=== PATIENT | female | born 1935 | race Caucasian/White ===

== ENCOUNTER 2017-01-28 07:52 | Day surgery (SDC) | payer MEDICARE, BC ==
[2017-01-28] MEDS ORDERED: Dextrose 5%-Lactated Ringers 1,000 ML IV SCH (08:30)
[2017-01-28] MEDS ORDERED: Bupivacaine 0.5% 50 ML MDV ONE (09:06)
[2017-01-28] MEDS ORDERED: fentaNYL 100 MCG/2 ML SDV ONE (09:23)
[2017-01-28] MEDS ORDERED: Propofol 200 MG/20 ML SDV ONE (09:23)
[2017-01-28] MEDS ORDERED: Scopolamine 1.5 MG Transdermal Patch ONE (10:03)
[2017-01-28] MEDS ORDERED: Bacitracin Oint 1 GM U/D Packet ONE (10:20)
[2017-01-28] MEDS: ceFAZolin 1 GM in Premix Bag 1 BAG IV ONE ×2 (11:02→11:18)
[2017-01-28 11:36] VITALS: BP 144/68
--- NOTE | 2017-02-05 14:13 | OR ---
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 OPERATIVE PROCEDURE: Excision of probable basal cell carcinoma on the right side of nose with layered closure ([id number]). ANESTHESIA: Local plus IV sedation. INDICATION FOR PROCEDURE: This is an 81-year-old presenting with a nodular lesion in the lateral aspect of her nose on the right side, this more or less along the edge of the naris. It was decided to proceed with excision of this with a primary closure. Potential risks including bleeding, infection, possible local recurrence, problems with some cosmetic deformity related to the excision were all reviewed, and the patient wishes to proceed. PROCEDURE IN DETAIL: The patient was taken to the operating room and placed in the supine position. After IV sedation was administered, the nose and surrounding areas were prepped and draped. The area around the lesion was then anesthetized with 1% lidocaine and a transversely oriented elliptical incision was made around the lesion extended somewhat into the underlying cartilage and it contained a small amount of normal-appearing skin adjacent to it. The deeper soft tissues were then approximated with some 5-0 Vicryl stitch and the skin with 6-0 Prolene stitch and some bacitracin was applied and the procedure concluded. The patient taken to the recovery room in satisfactory condition. The lesion itself measured 1.1 cm and the incision length 1.6 cm. Ahmet Velazquez MD /[id number]
== END 2017-01-28 11:55 | disposition home or self-care (01) ==
LOC: JP.SDS 07:52
PROVIDERS: ATTEND Surgery
DX: C44.311 Basal cell carcinoma of skin of nose (principal); I10 Essential (primary) hypertension; E78.00 Pure hypercholesterolemia, unspecified; Z79.899 Other long term (current) drug therapy; Z98.890 Other specified postprocedural states; Z88.8 Allergy status to other drugs, medicaments and biological substances; Z91.040 Latex allergy status
CPT/HCPCS: 11642; 12051; 88305; J0690; J2704; J3010; J7042; A9270-GY

== ENCOUNTER 2019-11-06 15:53 | Inpatient (IN) | payer MEDICARE ==
[2019-11-06] MEDS ORDERED: Acetaminophen 500 MG Tab PO ONE (16:04)
--- NOTE | 2019-11-06 16:14 | EDM.PDOC ---
ED HPI GENERAL MEDICAL PROBLEM - General Chief Complaint: Fever Stated Complaint: [facility] Time Seen by Provider: 11/06/19 16:09 Source of Information: Reports: Patient, EMS, Family, Old Records History Limitations: Reports: No Limitations - History of Present Illness INITIAL COMMENTS - FREE TEXT/NARRATIVE: 84 yo female here for fever that began this afternoon. Her lower legs have been increasingly red over the past couple of days. No urinary or respiratory sx's. No vomiting or diarrhea. No abdominal pain. No self tx. 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) (none) - Related Data Allergies Allergy/AdvReac Type Severity Reaction Status Date / Time latex Allergy Cannot Verified 01/28/17 08:14 Remember nifedipine [From Procardia] Allergy Cannot Verified 01/28/17 08:14 Remember terazosin Allergy Cannot Verified 01/28/17 08:14 Remember verapamil Allergy Cannot Verified 01/28/17 08:14 Remember Home Meds: Home Meds Acetaminophen 500 mg PO Q4HR PRN 01/24/17 [History] Aspirin 324 mg PO DAILY 01/24/17 [History] Atenolol [Tenormin] 50 mg PO BID 01/24/17 [History] Enalapril [Vasotec] 10 mg PO BID 01/24/17 [History] Felodipine [Felodipine ER] 10 mg PO DAILY 01/24/17 [History] Furosemide [Lasix] 20 mg PO DAILY 01/24/17 [History] Glucosamine Sulfate 1,000 mg PO BID 01/24/17 [History] Multivitamin with Minerals [Multiple Vitamin] 1 tab PO DAILY 01/24/17 [History] Potassium Chloride [Klor-Con M10] 10 meq PO BID 01/24/17 [History] Pravastatin [Pravachol] 40 mg PO DAILY 01/24/17 [History] Past Medical History HEENT History: Reports: Allergic Rhinitis, Cataract, Impaired Vision Cardiovascular History: Reports: High Cholesterol, Hypertension Respiratory History: Reports: None Gastrointestinal History: Reports: 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: Musculoskeletal History: Reports: None Neurological History: Reports: None Hematologic History: Reports: Blood Transfusion(s) - Infectious Disease History Infectious Disease History: Reports: Chicken Pox, Measles - Past Surgical History HEENT Surgical History: Reports: Cataract Surgery Neurological Surgical History: Reports: Lumbar Spine Musculoskeletal Surgical History: Reports: Hip Replacement Social & Family History - Caffeine Use Caffeine Use: Reports: Coffee, Tea ED ROS GENERAL - Review of Systems Review Of Systems: See Below Constitutional: Reports: No Symptoms HEENT: Reports: No Symptoms Respiratory: Reports: No Symptoms Cardiovascular: Reports: No Symptoms GI/Abdominal: Reports: No Symptoms : Reports: No Symptoms Musculoskeletal: Reports: No Symptoms Skin: Reports: Erythema (both legs below the knees) Neurological: Reports: No Symptoms ED EXAM, SEPSIS - Physical Exam Exam: See Below Exam Limited By: No Limitations General Appearance: Alert, WD/WN, No Apparent Distress Eye Exam: Bilateral Eye: Normal Inspection Ears: Normal External Exam, Normal Canal, Hearing Grossly Normal, Normal TMs Nose: Normal Inspection, No Blood Throat/Mouth: Normal Inspection, Normal Lips, Normal Oropharynx, Normal Voice, No Airway Compromise Head: Atraumatic, Normocephalic Neck: Normal Inspection Respiratory/Chest: No Respiratory Distress, Lungs Clear, Normal Breath Sounds, No Accessory Muscle Use Cardiovascular: Regular Rate, Rhythm GI/Abdominal Exam: Normal Bowel Sounds, Soft, Non-Tender, No Distention Back: Normal Inspection. No: CVA Tenderness (R), CVA Tenderness (L) Extremities: Normal Inspection, Normal Range of Motion, Non-Tender, No Pedal Edema Neurological: Alert, Oriented, CN II-XII Intact, Normal Cognition, No Motor/ Sensory Deficits Psychiatric: Normal Affect, Normal Mood Skin: Warm, Dry, Intact, No Rash, Erythema (of both legs below the knees.) Course - Vital Signs Text/Narrative:: Dr. Downing called @ 1712h Last Recorded V/S: Last Vital Signs Temp 39.6 C H 11/06/19 16:21 Pulse 94 11/06/19 16:21 Resp 18 11/06/19 16:21 BP 150/68 H 11/06/19 16:21 Pulse Ox 99 11/06/19 16:21 - Orders/Labs/Meds Orders: Active Orders 24 hr Category Date Time Status CULTURE BLOOD [BC] Stat Lab 11/06/19 16:18 Received LACTIC ACID [CHEM] Stat Lab 11/06/19 20:30 Ordered UA W/MICROSCOPIC [URIN] Stat Lab 11/06/19 15:59 Ordered Lactated Ringers [Ringers, Lactated] 1,000 ml Med 11/06/19 17:09 Ordered IV BOLUS Sodium Chloride 0.9% [Saline Flush] Med 11/06/19 16:55 Active 10 ml FLUSH ASDIRECTED PRN Saline Lock Insert [OM.PC] Routine Oth 11/06/19 16:55 Ordered Medication Orders Lactated Ringer's (Ringers, Lactated) 1,000 mls @ 1,000 mls/hr IV BOLUS ONE Stop: 11/06/19 18:08 Sodium Chloride (Saline Flush) 10 ml FLUSH ASDIRECTED PRN PRN Reason: Keep Vein Open Labs: Laboratory Tests 11/06/19 11/06/19 11/06/19 Range/Units 16:18 16:18 16:18 WBC 14.6 H (4.5-11.0) K/uL RBC 4.91 (3.30-5.50) M/uL Hgb 14.3 (12.0-15.0) g/dL Hct 45.3 (36.0-48.0) % MCV 92 (80-98) fL MCH 29 (27-31) pg MCHC 32 (32-36) % Plt Count 287 (150-400) K/uL Sodium 140 (140-148) mmol/L Potassium 3.7 (3.6-5.2) mmol/L Chloride 101 (100-108) mmol/L Carbon Dioxide 27 (21-32) mmol/L Anion Gap 11.7 (5.0-14.0) mmol/L BUN 19 H (7-18) mg/dL Creatinine 0.6 (0.6-1.0) mg/dL Est Cr Clr Drug Dosing TNP Estimated GFR (MDRD) > 60 (>60) Glucose 99 (74-106) mg/dL Lactic Acid 2.8 H (0.4-2.0) mmol/L Calcium 9.1 (8.5-10.1) mg/dL Meds: Medications Generic Name Dose Route Start Last Admin Trade Name Freq PRN Reason Stop Dose Admin Lactated Ringer's 1,000 mls @ 1,000 mls/hr 11/06/19 17:09 Ringers, Lactated IV 11/06/19 18:08 BOLUS ONE Sodium Chloride 10 ml 11/06/19 16:55 Saline Flush FLUSH ASDIRECTED PRN Keep Vein Open Discontinued Medications Generic Name Dose Route Start Last Admin Trade Name Ej PRN Reason Stop Dose Admin Acetaminophen 1,000 mg 11/06/19 16:04 11/06/19 16:37 Tylenol Extra Strength PO 11/06/19 16:05 1,000 mg ONETIME ONE Administration Departure - Departure Time of Disposition: 17:35 Disposition: Admitted As Inpatient 65 Condition: Fair Clinical Impression: Bilateral lower leg cellulitis - Discharge Information *PRESCRIPTION DRUG MONITORING PROGRAM REVIEWED*: No *COPY OF PRESCRIPTION DRUG MONITORING REPORT IN PATIENT JULIO CESAR: No Referrals: Jayce Romero MD [Primary Care Provider] - Forms: ED Department Discharge Sepsis Event Note - Focused Exam Vital Signs: Vital Signs Temp Pulse Resp BP Pulse Ox 11/06/19 16:21 39.6 C H 94 18 150/68 H 99 Date Exam was Performed: 11/06/19 Time Exam was Performed: 17:12 - My Orders Last 24 Hours: My Active Orders 11/06/19 15:59 UA W/MICROSCOPIC [URIN] Stat 11/06/19 16:18 CULTURE BLOOD [BC] Stat 11/06/19 16:55 Sodium Chloride 0.9% [Saline Flush] 10 ml FLUSH ASDIRECTED PRN Saline Lock Insert [OM.PC] Routine 11/06/19 17:09 Lactated Ringers [Ringers, Lactated] 1,000 ml IV BOLUS 11/06/19 20:30 LACTIC ACID [CHEM] Stat - Assessment/Plan Last 24 Hours: My Active Orders 11/06/19 15:59 UA W/MICROSCOPIC [URIN] Stat 11/06/19 16:18 CULTURE BLOOD [BC] Stat 11/06/19 16:55 Sodium Chloride 0.9% [Saline Flush] 10 ml FLUSH ASDIRECTED PRN Saline Lock Insert [OM.PC] Routine 11/06/19 17:09 Lactated Ringers [Ringers, Lactated] 1,000 ml IV BOLUS 11/06/19 20:30 LACTIC ACID [CHEM] Stat
[2019-11-06] MEDS ORDERED: Sodium Chloride 0.9% 10 ML Syringe FLUSH PRN (16:55)
[2019-11-06] MEDS ORDERED: Lactated Ringers 1,000 ML IV ONE (17:09)
[2019-11-06] MEDS ORDERED: Sodium Chloride 0.9% 500 ML IV SCH (17:45)
--- NOTE | 2019-11-06 17:55 | PCM.HP.2 ---
H&P History of Present Illness - General Date of Service: 11/06/19 Admit Problem/Dx: Admission Diagnosis/Problem Admission Diagnosis/Problem Cellulitis of leg Source of Information: Patient, Provider History Limitations: Reports: No Limitations - History of Present Illness Initial Comments - Free Text/Narative: CC: My temp was high HPI: Luciana presents to the emergency room today with a fever greater than 103 degrees. She reports off-and-on difficulties with some redness of her lower extremities for the past several weeks. She does not think the redness is dramatically different other than on the left leg which may be slightly more red. Swelling is about usual for her over the past few weeks. Over the past several days she has had some subjective temperatures and today a temperature greater than 103 was measured at her assisted living facility. She feels a little weak and has lost her appetite. She has not had a cough or shortness of breath. No abdominal pain, nausea or diarrhea. No change in bladder habits such as dysuria or increased frequency. She has had some mild achy pain in the lower legs that does get better with Tylenol. She has never had an infection in either of her legs in the past. No recent antibiotics. No sick contacts. She does report a mild sore throat and rhinorrhea. Work-up in the emergency room was suggestive of a left leg cellulitis with mild sepsis. She has received 1 L of fluids. She will be receiving 500 more milliliters as well as antibiotics and then will be admitted for further management. - Related Data Allergies/Adverse Reactions: Allergies Allergy/AdvReac Type Severity Reaction Status Date / Time latex Allergy Cannot Verified 01/28/17 08:14 Remember nifedipine [From Procardia] Allergy Cannot Verified 01/28/17 08:14 Remember terazosin Allergy Cannot Verified 01/28/17 08:14 Remember verapamil Allergy Cannot Verified 01/28/17 08:14 Remember Home Medications: Home Meds Acetaminophen 500 mg PO Q4HR PRN 01/24/17 [History] Aspirin 324 mg PO DAILY 01/24/17 [History] Atenolol [Tenormin] 50 mg PO BID 01/24/17 [History] Enalapril [Vasotec] 10 mg PO BID 01/24/17 [History] Felodipine [Felodipine ER] 10 mg PO DAILY 01/24/17 [History] Furosemide [Lasix] 20 mg PO DAILY 01/24/17 [History] Glucosamine Sulfate 1,000 mg PO BID 01/24/17 [History] Multivitamin with Minerals [Multiple Vitamin] 1 tab PO DAILY 01/24/17 [History] Potassium Chloride [Klor-Con M10] 10 meq PO BID 01/24/17 [History] Pravastatin [Pravachol] 40 mg PO DAILY 01/24/17 [History] Past Medical History HEENT History: Reports: Allergic Rhinitis, Cataract, Impaired Vision Cardiovascular History: Reports: High Cholesterol, Hypertension Respiratory History: Reports: None Gastrointestinal History: Reports: 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: Musculoskeletal History: Reports: None Neurological History: Reports: None Hematologic History: Reports: Blood Transfusion(s) - Infectious Disease History Infectious Disease History: Reports: Chicken Pox, Measles - Past Surgical History HEENT Surgical History: Reports: Cataract Surgery Neurological Surgical History: Reports: Lumbar Spine Musculoskeletal Surgical History: Reports: Hip Replacement Social & Family History - Tobacco Use Smoking Status *Q: Never Smoker - Caffeine Use Caffeine Use: Reports: Coffee, Tea - Recreational Drug Use Recreational Drug Use: No H&P Review of Systems - Review of Systems: Review Of Systems: See Below Free Text/Narrative: A complete 12 point review of systems was obtained. Pertinent positives and negatives are noted in the history of present illness. All other systems were reviewed and were negative except as noted. Exam - Exam Exam: See Below - Vital Signs Vital Signs: Last Vital Signs Temp 39.6 C H 11/06/19 16:21 Pulse 94 11/06/19 16:21 Resp 18 11/06/19 16:21 BP 150/68 H 11/06/19 16:21 Pulse Ox 99 11/06/19 16:21 Weight: 56.9 kg - Exam Quality Assessment: No: Supplemental Oxygen General: Alert, Oriented, Cooperative. No: Mild Distress HEENT: Conjunctiva Clear. No: Mucosa Moist & [place] (dry), Scleral Icterus Neck: Supple, Trachea Midline. No: Lymphadenopathy Lungs: Clear to Auscultation, Normal Respiratory Effort Cardiovascular: Regular Rhythm, Tachycardia GI/Abdominal Exam: Normal Bowel Sounds, Soft, Non-Tender, No Distention Back Exam: Normal Inspection, Full Range of Motion Extremities: Pedal Edema (Mild swelling of both legs to below the knee), Increased Warmth (Both legs around the ankle. Left leg very warm to touch on the upper and inner aspect of the lower extremity just distal to the knee) Skin: Warm, Dry, Rash (Erythema of both lower extremities around the ankles with some crusting more so on the left than on the right. Significant erythema of the anteromedial pedraza as well as the upper calf of the left leg), Other (ONE 0.5 x 1 cm vesicle on the left anterior pedraza with some clear drainage) Neuro Extensive - Mental Status: Alert, Oriented x3, Nl Response to Commands Neuro Extensive - Motor, Sensory, Reflexes: Tremor (Mild generalized). No: Dysarthria, Abnormal Motor Psychiatric: Alert, Normal Affect - Patient Data Lab Results Last 24 hrs: Laboratory Results - last 24 hr 11/06/19 11/06/19 11/06/19 Range/Units 16:18 16:18 16:18 WBC 14.6 H (4.5-11.0) K/uL RBC 4.91 (3.30-5.50) M/uL Hgb 14.3 (12.0-15.0) g/dL Hct 45.3 (36.0-48.0) % MCV 92 (80-98) fL MCH 29 (27-31) pg MCHC 32 (32-36) % Plt Count 287 (150-400) K/uL Sodium 140 (140-148) mmol/L Potassium 3.7 (3.6-5.2) mmol/L Chloride 101 (100-108) mmol/L Carbon Dioxide 27 (21-32) mmol/L Anion Gap 11.7 (5.0-14.0) mmol/L BUN 19 H (7-18) mg/dL Creatinine 0.6 (0.6-1.0) mg/dL Est Cr Clr Drug Dosing TNP Estimated GFR (MDRD) > 60 (>60) Glucose 99 (74-106) mg/dL Lactic Acid 2.8 H (0.4-2.0) mmol/L Calcium 9.1 (8.5-10.1) mg/dL Result Diagrams: 11/06/19 16:18 11/06/19 16:18 Sepsis Event Note - Evaluation Sepsis Screening Result: Possible Sepsis Risk Current Stage of Sepsis: Sepsis Possible Source of Sepsis: Skin/Soft Tissue - Focused Exam Sepsis Event Note Statement: Focused Sepsis Exam Completed Vital Signs: Vital Signs Temp Pulse Resp BP Pulse Ox 11/06/19 16:21 39.6 C H 94 18 150/68 H 99 Respiratory Effort Without Exertion: Other (see below) (Normal) Heart Sounds: Other (see below) (Normal) Capillary Refill, Detail: Less than/Equal to (</=) 2 Seconds Pulse Description: 2+ Normal Peripheral Pulse Location: Dorsalis Pedis Skin Exam (Focused Sepsis): Normal Turgor Date Exam was Performed: 11/06/19 Time Exam was Performed: 17:55 *Q Meaningful Use (ADM) - VTE *Q VTE Mechanical Contraindications *Q: Bilateral Lower Edema - VTE Risk Assess *Q Each Risk Factor Represents 1 Point: Swollen Legs, Current, Sepsis Total Score 1 Point Risk Factors: 2 Each Risk Factor Represents 2 Points: None Total Score 2 Point Risk Factors: 0 Each Risk Factor Represents 3 Points: Age 75 Years or Greater Total Score 3 Point Risk Factors: 3 Each Risk Factor Represents 5 Points: None Total Score 5 Point Risk Factors: 0 Venous Thromboembolism Risk Factor Score *Q: 5 - Problem List (1) Cellulitis of leg without foot, left SNOMED Code(s): 903830098 ICD Code: L03.116 - CELLULITIS OF LEFT LOWER LIMB Status: Acute Current Visit: Yes (2) Sepsis SNOMED Code(s): 75574084 ICD Code: A41.9 - SEPSIS, UNSPECIFIED ORGANISM Status: Acute Current Visit: Yes Qualifiers: Sepsis type: sepsis due to unspecified organism Sepsis acute organ dysfunction status: without acute organ dysfunction Qualified Code(s): A41.9 - Sepsis, unspecified organism (3) Essential hypertension SNOMED Code(s): 44193396 ICD Code: I10 - ESSENTIAL (PRIMARY) HYPERTENSION Status: Chronic Current Visit: Yes (4) Venous insufficiency of both lower extremities SNOMED Code(s): 895005314 ICD Code: I87.2 - VENOUS INSUFFICIENCY (CHRONIC) (PERIPHERAL) Status: Chronic Current Visit: Yes Problem List Initiated/Reviewed/Updated: Yes Orders Last 24hrs: Active Orders 24 hr Category Date Time Status Patient Status Manage Transfer [TRANSFER] Routine ADT 11/06/19 17:44 Ordered CULTURE BLOOD [BC] Stat Lab 11/06/19 16:18 Received LACTIC ACID [CHEM] Stat Lab 11/06/19 20:30 Ordered UA W/MICROSCOPIC [URIN] Stat Lab 11/06/19 15:59 Ordered Lactated Ringers [Ringers, Lactated] 1,000 ml Med 11/06/19 17:09 Active IV BOLUS Sodium Chloride 0.9% [Normal Saline] 500 ml Med 11/06/19 17:45 Active IV ASDIRECTED Sodium Chloride 0.9% [Saline Flush] Med 11/06/19 16:55 Active 10 ml FLUSH ASDIRECTED PRN ceFAZolin [Ancef] 1 gm Med 11/06/19 17:45 Active Sodium Chloride 0.9% [Normal Saline] 50 ml IV Q8H Saline Lock Insert [OM.PC] Routine Oth 11/06/19 16:55 Ordered Resuscitation Status Routine Resus Stat 11/06/19 17:47 Ordered Medication Orders Lactated Ringer's (Ringers, Lactated) 1,000 mls @ 1,000 mls/hr IV BOLUS ONE Stop: 11/06/19 18:08 Last Admin: 11/06/19 17:16 Dose: 1,000 mls/hr Cefazolin Sodium 1 gm/ Sodium (Chloride) 50 mls @ 100 mls/hr IV Q8H PEDRITO Sodium Chloride (Normal Saline) 500 mls @ 500 mls/hr IV ASDIRECTED PEDRITO Stop: 11/06/19 18:46 Sodium Chloride (Saline Flush) 10 ml FLUSH ASDIRECTED PRN PRN Reason: Keep Vein Open Last Admin: 11/06/19 17:16 Dose: 10 ml Assessment/Plan Comment:: ASSESSMENT AND PLAN - Left leg cellulitis with sepsis-evidence for sepsis includes tachycardia and lactic acidosis. Slowly improving with IV fluids in the emergency room. Cultures have been obtained and antibiotics will be administered. I suspect this is a strep infection. No recent antibiotics or risk factors for resistant organisms. White blood cell count is mildly elevated. -Antibiotic coverage with cefazolin -Additional IV fluids -Pain control -Repeat lactic acid this evening Essential hypertension-blood pressure normal at this time and I plan to continue her usual home medications. Chronic venous insufficiency, suspected-chronic difficulties with swelling of both lower legs. Better in the morning and worse as the day goes on. Likely contributed to the cellulitis with multiple areas that are open and some weeping. -SHAD stockings once infection settles down Maintenance issues - - DVT prophylaxis -enoxaparin - GI prophylaxis -not indicated - Nutrition -regular diet - Guillory catheter -not indicated CODE STATUS -full code Admission justification -this patient will be admitted for inpatient services and is medically appropriate meeting medical necessity for inpatient admission as outlined in my documentation. I reasonably expect the patient will require inpatient services that span a period time over 2 midnights. I reasonably expect this patient to be discharged or transferred within 96 hours after admission to the [facility]. Disposition -I would anticipate discharge back to her assisted living after the hospital stay Primary care physician -Dr Gm Downing M.D. - Mortality Measure Prognosis:: Good
[2019-11-06] MEDS: ceFAZolin 1 GM in Sodium Chloride 0.9% 50 ML IV SCH (18:04)
[2019-11-06] MEDS ORDERED: Magnesium Hydroxide 400 MG/5 ML Susp 30 ML Cup PO PRN (19:07)
[2019-11-06] MEDS ORDERED: LORazepam 2 MG/ML SDV IVPUSH PRN (19:07)
[2019-11-06] MEDS ORDERED: Ondansetron 4 MG/2 ML SDV IV PRN (19:07)
[2019-11-06] MEDS ORDERED: Ibuprofen 600 MG Tab PO PRN (19:07)
[2019-11-06] MEDS ORDERED: Sodium Chloride 0.9% 1,000 ML IV SCH (19:07)
[2019-11-06] MEDS ORDERED: Albuterol 0.083% 2.5 MG/3 ML Neb Soln NEB PRN (19:07)
[2019-11-06] MEDS ORDERED: Ondansetron 4 MG Tab.DIS PO PRN (19:07)
[2019-11-06] MEDS ORDERED: Atenolol 25 MG Tab ONE (20:42)
[2019-11-06] MEDS: Melatonin 3 MG Tab PO SCH (21:00)
[2019-11-06] MEDS: Enalapril 5 MG Tab PO SCH (21:00)
[2019-11-06] MEDS: Lactobacillus Rhamnosus GG (Probiotic) Cap PO SCH (21:00)
[2019-11-06] MEDS: Atenolol 50 MG Tab PO SCH (21:01)
[2019-11-06] MEDS: Potassium Chloride 10 MEQ Cap.ER PO SCH (21:01)
[2019-11-06] MEDS ORDERED: Sodium Chloride 0.9% 500 ML IV ONE (21:26)
[2019-11-06] MEDS: Sodium Chloride 0.9% 1,000 ML IV SCH (21:32)
[2019-11-07] MEDS: Acetaminophen 325 MG Tab PO PRN ×2 (01:34→20:02)
[2019-11-07] MEDS: ceFAZolin 1 GM in Sodium Chloride 0.9% 50 ML IV SCH (01:52)
[2019-11-07] MEDS: Sodium Chloride 0.9% 1,000 ML IV SCH (07:48)
[2019-11-07] MEDS: Furosemide 20 MG Tab PO SCH (08:44)
[2019-11-07] MEDS: Lactobacillus Rhamnosus GG (Probiotic) Cap PO SCH ×2 (08:44→20:03)
[2019-11-07] MEDS: Aspirin 325 MG Tab.EC PO SCH (08:44)
[2019-11-07] MEDS: Potassium Chloride 10 MEQ Cap.ER PO SCH ×2 (08:45→20:03)
[2019-11-07] MEDS: Atenolol 50 MG Tab PO SCH ×2 (08:45→20:03)
[2019-11-07] MEDS: Enalapril 5 MG Tab PO SCH ×2 (08:46→20:03)
[2019-11-07] MEDS: Enoxaparin 40 MG/0.4 ML Syringe SUBCUT SCH (08:46)
[2019-11-07] MEDS ORDERED: Aspirin 81 MG Tab.EC PO SCH (09:00)
--- NOTE | 2019-11-07 09:42 | PCM.PN ---
- General Info Date of Service: 11/07/19 Subjective Update: No acute events overnight. Temperature curve has steadily improved throughout the night. No significant leg pain today. Minimal swelling which is stable. No complaints of nausea or abdominal pain. Appetite improving. Lactic acid has normalized. Area of erythema involving the left leg is improved compared to yesterday. Functional Status: Reports: Pain Controlled, Tolerating Diet - Review of Systems General: Reports: Fever Musculoskeletal: Denies: Leg Pain - Patient Data Vitals - Most Recent: Last Vital Signs Temp 35.7 C L 11/07/19 07:00 Pulse 70 11/07/19 08:45 Resp 14 11/07/19 07:00 BP 125/47 L 11/07/19 08:46 Pulse Ox 95 11/07/19 07:00 Weight - Most Recent: 64.637 kg I&O - Last 24 Hours: Intake & Output 11/06/19 11/07/19 11/07/19 22:59 06:59 14:59 Intake Total 860 Output Total 325 350 Balance 535 -350 Lab Results Last 24 Hours: Laboratory Results - last 24 hr 11/06/19 11/06/19 11/06/19 Range/Units 15:59 16:18 16:18 WBC 14.6 H (4.5-11.0) K/uL RBC 4.91 (3.30-5.50) M/uL Hgb 14.3 (12.0-15.0) g/dL Hct 45.3 (36.0-48.0) % MCV 92 (80-98) fL MCH 29 (27-31) pg MCHC 32 (32-36) % Plt Count 287 (150-400) K/uL Sodium 140 (140-148) mmol/L Potassium 3.7 (3.6-5.2) mmol/L Chloride 101 (100-108) mmol/L Carbon Dioxide 27 (21-32) mmol/L Anion Gap 11.7 (5.0-14.0) mmol/L BUN 19 H (7-18) mg/dL Creatinine 0.6 (0.6-1.0) mg/dL Est Cr Clr Drug Dosing TNP Estimated GFR (MDRD) > 60 (>60) Glucose 99 (74-106) mg/dL Lactic Acid (0.4-2.0) mmol/L Calcium 9.1 (8.5-10.1) mg/dL Urine Color Yellow (YELLOW) Urine Appearance Slightly cloudy A (CLEAR) Urine pH 5.5 (5.0-8.0) Ur Specific Mineral 1.020 (1.008-1.030) Urine Protein Negative (NEGATIVE) mg/dL Urine Glucose (UA) Negative (NEGATIVE) mg/dL Urine Ketones 40 H (NEGATIVE) mg/dL Urine Occult Blood Trace-intact H (NEGATIVE) Urine Nitrite Negative (NEGATIVE) Urine Bilirubin Negative (NEGATIVE) Urine Urobilinogen 0.2 (0.2-1.0) EU/dL Ur Leukocyte Esterase Small H (NEGATIVE) Urine RBC 5-10 H (0-5) Urine WBC 10-20 H (0-5) Ur Epithelial Cells Many Amorphous Sediment Not seen Urine Bacteria Many Urine Mucus Moderate 11/06/19 11/06/19 11/07/19 Range/Units 16:18 20:42 05:50 WBC 11.0 (4.5-11.0) K/uL RBC 3.92 (3.30-5.50) M/uL Hgb 11.6 L D (12.0-15.0) g/dL Hct 36.5 (36.0-48.0) % MCV 93 (80-98) fL MCH 30 (27-31) pg MCHC 32 (32-36) % Plt Count 225 (150-400) K/uL Sodium (140-148) mmol/L Potassium (3.6-5.2) mmol/L Chloride (100-108) mmol/L Carbon Dioxide (21-32) mmol/L Anion Gap (5.0-14.0) mmol/L BUN (7-18) mg/dL Creatinine (0.6-1.0) mg/dL Est Cr Clr Drug Dosing Estimated GFR (MDRD) (>60) Glucose (74-106) mg/dL Lactic Acid 2.8 H 3.4 H (0.4-2.0) mmol/L Calcium (8.5-10.1) mg/dL Urine Color (YELLOW) Urine Appearance (CLEAR) Urine pH (5.0-8.0) Ur Specific Mineral (1.008-1.030) Urine Protein (NEGATIVE) mg/dL Urine Glucose (UA) (NEGATIVE) mg/dL Urine Ketones (NEGATIVE) mg/dL Urine Occult Blood (NEGATIVE) Urine Nitrite (NEGATIVE) Urine Bilirubin (NEGATIVE) Urine Urobilinogen (0.2-1.0) EU/dL Ur Leukocyte Esterase (NEGATIVE) Urine RBC (0-5) Urine WBC (0-5) Ur Epithelial Cells Amorphous Sediment Urine Bacteria Urine Mucus 11/07/19 11/07/19 Range/Units 05:50 05:50 WBC (4.5-11.0) K/uL RBC (3.30-5.50) M/uL Hgb (12.0-15.0) g/dL Hct (36.0-48.0) % MCV (80-98) fL MCH (27-31) pg MCHC (32-36) % Plt Count (150-400) K/uL Sodium 141 (140-148) mmol/L Potassium 3.6 (3.6-5.2) mmol/L Chloride 107 (100-108) mmol/L Carbon Dioxide 25 (21-32) mmol/L Anion Gap 8.7 (5.0-14.0) mmol/L BUN 13 (7-18) mg/dL Creatinine 0.7 (0.6-1.0) mg/dL Est Cr Clr Drug Dosing 46.47 Estimated GFR (MDRD) > 60 (>60) Glucose 102 (74-106) mg/dL Lactic Acid 1.6 (0.4-2.0) mmol/L Calcium 7.9 L (8.5-10.1) mg/dL Urine Color (YELLOW) Urine Appearance (CLEAR) Urine pH (5.0-8.0) Ur Specific Mineral (1.008-1.030) Urine Protein (NEGATIVE) mg/dL Urine Glucose (UA) (NEGATIVE) mg/dL Urine Ketones (NEGATIVE) mg/dL Urine Occult Blood (NEGATIVE) Urine Nitrite (NEGATIVE) Urine Bilirubin (NEGATIVE) Urine Urobilinogen (0.2-1.0) EU/dL Ur Leukocyte Esterase (NEGATIVE) Urine RBC (0-5) Urine WBC (0-5) Ur Epithelial Cells Amorphous Sediment Urine Bacteria Urine Mucus Med Orders - Current: Current Medications Acetaminophen (Tylenol) 650 mg PO Q4H PRN PRN Reason: Pain (Mild 1-3)/fever Last Admin: 11/07/19 01:34 Dose: 650 mg Albuterol (Proventil Neb Soln) 2.5 mg NEB Q4H PRN PRN Reason: Shortness Of Breath/wheezing Aspirin (Ecotrin) 325 mg PO DAILY [facility] Last Admin: 11/07/19 08:44 Dose: 325 mg Atenolol (Tenormin) 50 mg PO BID [facility] Last Admin: 11/07/19 08:45 Dose: 50 mg Enalapril Maleate (Vasotec) 10 mg PO BID [facility] Last Admin: 11/07/19 08:46 Dose: 10 mg Enoxaparin Sodium (Lovenox) 40 mg SUBCUT DAILY [facility] Last Admin: 11/07/19 08:46 Dose: 40 mg Felodipine (Felodipine Er) 10 mg PO DAILY [facility] Furosemide (Lasix) 20 mg PO DAILY [facility] Last Admin: 11/07/19 08:44 Dose: 20 mg Sodium Chloride (Normal Saline) 1,000 mls @ 100 mls/hr IV ASDIRECTED [facility] Last Admin: 11/07/19 07:48 Dose: 100 mls/hr Cefazolin Sodium/Dextrose 1 gm (/ Premix) 50 mls @ 100 mls/hr IV Q8H [facility] Ibuprofen (Motrin) 600 mg PO Q6H PRN PRN Reason: Pain/Fever Last Admin: 11/07/19 03:06 Dose: 600 mg Lactobacillus Rhamnosus (Culturelle) 1 cap PO BID [facility] Last Admin: 11/07/19 08:44 Dose: 1 cap Lorazepam (Ativan) 0.5 mg IVPUSH Q4H PRN PRN Reason: Nausea/Vomiting Magnesium Hydroxide (Milk Of Magnesia) 30 ml PO Q12H PRN PRN Reason: Constipation Melatonin (Melatonin) 9 mg PO BEDTIME [facility] Last Admin: 11/06/19 21:00 Dose: 9 mg Ondansetron HCl (Zofran Odt) 4 mg PO Q6H PRN PRN Reason: Nausea able to take PO Ondansetron HCl (Zofran) 4 mg IV Q6H PRN PRN Reason: Nausea/Vomiting Potassium Chloride (Potassium Chloride) 10 meq PO BID [facility] Last Admin: 11/07/19 08:45 Dose: 10 meq Pravastatin Sodium (Pravachol) 40 mg PO BEDTIME [facility] Senna/Docusate Sodium (Senna Plus) 1 tab PO BID PRN PRN Reason: Constipation Sodium Chloride (Saline Flush) 10 ml FLUSH ASDIRECTED PRN PRN Reason: Keep Vein Open Last Admin: 11/06/19 17:16 Dose: 10 ml Discontinued Medications Acetaminophen (Tylenol Extra Strength) 1,000 mg PO ONETIME ONE Stop: 11/06/19 16:05 Last Admin: 11/06/19 16:37 Dose: 1,000 mg Aspirin (Halfprin) 324 mg PO DAILY [facility] Atenolol (Tenormin) Confirm Administered Dose 50 mg .ROUTE .STK-MED ONE Stop: 11/06/19 20:43 Last Admin: 11/06/19 21:00 Dose: Not Given Lactated Ringer's (Ringers, Lactated) 1,000 mls @ 1,000 mls/hr IV BOLUS ONE Stop: 11/06/19 18:08 Last Admin: 11/06/19 17:16 Dose: 1,000 mls/hr Cefazolin Sodium 1 gm/ Sodium (Chloride) 50 mls @ 100 mls/hr IV Q8H [facility] Last Admin: 11/07/19 01:52 Dose: 100 mls/hr Sodium Chloride (Normal Saline) 500 mls @ 500 mls/hr IV ASDIRECTED [facility] Stop: 11/06/19 18:46 Sodium Chloride (Normal Saline) 1,000 mls @ 1,000 mls/hr IV ASDIRECTED [facility] Last Admin: 11/06/19 19:00 Dose: 1,000 mls/hr Sodium Chloride (Normal Saline) 500 mls @ 500 mls/hr IV .BOLUS ONE Stop: 11/06/19 22:25 Last Admin: 11/06/19 21:39 Dose: 500 mls/hr - Exam Quality Assessment: No: Supplemental Oxygen General: Alert, Oriented, Cooperative, No Acute Distress Lungs: Normal Respiratory Effort GI/Abdominal Exam: Soft, No Distention Extremities: Pedal Edema, Increased Warmth (left upper medial lower leg ) Skin: Warm, Dry, Rash (erythema and warmth left upper and medial lower leg ) Psy/Mental Status: Alert, Normal Affect Sepsis Event Note - Evaluation Sepsis Screening Result: No Definite Risk - Focused Exam Vital Signs: Vital Signs Temp Temp Pulse Pulse Resp BP BP 11/07/19 08:46 125/47 L 11/07/19 08:45 70 125/47 L 11/07/19 07:00 35.7 C L 61 14 125/47 L 11/07/19 03:00 37.3 C 83 15 125/44 L 11/07/19 01:34 37.9 C 11/06/19 23:07 37.3 C 89 17 116/53 L Pulse Ox 11/07/19 08:46 11/07/19 08:45 11/07/19 07:00 95 11/07/19 03:00 91 L 11/07/19 01:34 11/06/19 23:07 94 L Date Exam was Performed: 11/07/19 Time Exam was Performed: 12:42 - Problem List & Annotations (1) Cellulitis of leg without foot, left SNOMED Code(s): 588518263 Code(s): L03.116 - CELLULITIS OF LEFT LOWER LIMB Status: Acute Current Visit: Yes (2) Sepsis SNOMED Code(s): 55895085 Code(s): A41.9 - SEPSIS, UNSPECIFIED ORGANISM Status: Acute Current Visit : Yes Qualifiers: Sepsis type: sepsis due to unspecified organism Sepsis acute organ dysfunction status: without acute organ dysfunction Qualified Code(s): A41.9 - Sepsis, unspecified organism (3) Essential hypertension SNOMED Code(s): 09431194 Code(s): I10 - ESSENTIAL (PRIMARY) HYPERTENSION Status: Chronic Current Visit: Yes (4) Venous insufficiency of both lower extremities SNOMED Code(s): 218726091 Code(s): I87.2 - VENOUS INSUFFICIENCY (CHRONIC) (PERIPHERAL) Status: Chronic Current Visit: Yes - Problem List Review Problem List Initiated/Reviewed/Updated: Yes - My Orders Last 24 Hours: My Active Orders 11/06/19 17:47 Resuscitation Status Routine 11/06/19 19:07 Patient Status [ADT] Routine Intake and Output [RC] QSHIFT Notify Provider Vital Signs [RC] ASDIRECTED Oxygen Therapy [RC] PRN RT Aerosol Therapy [RC] ASDIRECTED Up With Assistance [RC] ASDIRECTED VTE/DVT Education [RC] Per Unit Routine Vital Signs [RC] Q4H Acetaminophen [Tylenol] 650 mg PO Q4H PRN Albuterol [Proventil Neb Soln] 2.5 mg NEB Q4H PRN Docusate Sodium/Sennosides [Senna Plus] 1 tab PO BID PRN Ibuprofen [Motrin] 600 mg PO Q6H PRN LORazepam [Ativan] 0.5 mg IVPUSH Q4H PRN Magnesium Hydroxide [Milk of Magnesia] 30 ml PO Q12H PRN Ondansetron [Zofran ODT] 4 mg PO Q6H PRN Ondansetron [Zofran] 4 mg IV Q6H PRN 11/06/19 20:00 CULTURE URINE [RM] Routine 11/06/19 20:30 Sodium Chloride 0.9% [Normal Saline] 1,000 ml IV ASDIRECTED 11/06/19 21:00 Enalapril [Vasotec] 10 mg PO BID Lactobacillus Rhamnosus GG [Culturelle] 1 cap PO BID Melatonin 9 mg PO BEDTIME Potassium Chloride 10 meq PO BID atenoloL [Tenormin] 50 mg PO BID 11/06/19 Dinner Regular Diet [DIET] 11/07/19 09:00 Aspirin [Ecotrin] 325 mg PO DAILY Enoxaparin [Lovenox] 40 mg SUBCUT DAILY Felodipine [Felodipine ER] 10 mg PO DAILY Furosemide [Lasix] 20 mg PO DAILY 11/07/19 09:41 Potassium Chloride [Klor-Con M20] 40 meq PO ONETIME ONE Convert IV to Saline Lock [OM.PC] Routine 11/07/19 10:00 ceFAZolin [Ancef] 1 gm Premix Bag 1 bag IV Q8H 11/07/19 21:00 Pravastatin [Pravachol] 40 mg PO BEDTIME 11/08/19 05:00 BASIC METABOLIC PANEL,BMP [CHEM] Timed CBC W/O DIFF,HEMOGRAM [HEME] Timed (1) - Plan Plan:: ASSESSMENT AND PLAN - Left leg cellulitis with sepsis-sepsis has resolved. White blood cell count better. Leg looking better. 1 out of 2 culture bottles is positive for gram- positive cocci but identification pending, contamination seems most likely. -Antibiotic coverage with cefazolin -Saline lock IV -Pain control -Follow-up cultures Essential hypertension-blood pressure normal at this time. -Continue home medications Chronic venous insufficiency, suspected-stable. -SHAD stockings once infection settles down Maintenance issues - - DVT prophylaxis -enoxaparin - GI prophylaxis -not indicated - Nutrition -regular diet Disposition -I would anticipate discharge back to her assisted living after the hospital stay Roland Downing M.D.
[2019-11-07] MEDS ORDERED: Potassium Chloride 20 MEQ Tab.ER PO ONE (10:10)
[2019-11-07] MEDS: ceFAZolin 1 GM in Premix Bag 1 BAG IV SCH ×2 (10:25→17:28)
[2019-11-07] MEDS: FELODIPINE 10 MG PO SCH (14:55)
[2019-11-07] MEDS: Melatonin 3 MG Tab PO SCH (20:03)
[2019-11-07] MEDS: Pravastatin 20 MG Tab PO SCH (20:04)
[2019-11-08] MEDS: ceFAZolin 1 GM in Premix Bag 1 BAG IV SCH ×3 (01:12→18:23)
[2019-11-08] MEDS ORDERED: Metoprolol Tartrate 25 MG Tab PO ONE (05:12)
[2019-11-08] MEDS: Lactobacillus Rhamnosus GG (Probiotic) Cap PO SCH ×2 (09:01→20:46)
[2019-11-08] MEDS: Enoxaparin 40 MG/0.4 ML Syringe SUBCUT SCH (09:01)
[2019-11-08] MEDS: Potassium Chloride 10 MEQ Cap.ER PO SCH ×2 (09:01→20:47)
[2019-11-08] MEDS: Aspirin 325 MG Tab.EC PO SCH (09:02)
[2019-11-08] MEDS: Furosemide 20 MG Tab PO SCH (09:02)
[2019-11-08] MEDS: Atenolol 50 MG Tab PO SCH ×2 (09:02→20:50)
[2019-11-08] MEDS: Enalapril 5 MG Tab PO SCH ×2 (09:03→20:52)
[2019-11-08] MEDS: FELODIPINE 10 MG PO SCH (09:03)
--- NOTE | 2019-11-08 09:40 | PCM.PN ---
- General Info Date of Service: 11/08/19 Subjective Update: Overnight the patient had difficulty with some confusion as well as a couple episodes of atrial fibrillation with a rapid ventricular response. She did get an extra dose of metoprolol which helped. She reports that she feels well other than feeling a little shaky and feeling cold. Appetite is improving. She is a little weak but strength is improving. She does not have any leg pain at this time and lower extremity swelling is better. No nausea or abdominal pain. 1 out of 2 blood cultures are growing a gram-positive cocci, probably strep but identification is pending. Functional Status: Reports: Pain Controlled, Tolerating Diet - Review of Systems General: Reports: Weakness. Denies: Fever Psychiatric: Reports: Confusion - Patient Data Vitals - Most Recent: Last Vital Signs Temp 37.2 C 11/08/19 07:36 Pulse 88 11/08/19 09:02 Resp 21 H 11/08/19 07:36 BP 124/66 11/08/19 09:03 Pulse Ox 93 L 11/08/19 07:36 Weight - Most Recent: 64.637 kg I&O - Last 24 Hours: Intake & Output 11/07/19 11/08/19 11/08/19 22:59 06:59 14:59 Intake Total 500 50 50 Output Total 850 150 600 Balance -350 -100 -550 Lab Results Last 24 Hours: Laboratory Results - last 24 hr 11/08/19 11/08/19 Range/Units 06:01 06:01 WBC 12.1 H (4.5-11.0) K/uL RBC 4.33 (3.30-5.50) M/uL Hgb 12.8 (12.0-15.0) g/dL Hct 40.1 (36.0-48.0) % MCV 93 (80-98) fL MCH 30 (27-31) pg MCHC 32 (32-36) % Plt Count 247 (150-400) K/uL Sodium 143 (140-148) mmol/L Potassium 4.0 (3.6-5.2) mmol/L Chloride 107 (100-108) mmol/L Carbon Dioxide 24 (21-32) mmol/L Anion Gap 12.1 (5.0-14.0) mmol/L BUN 8 (7-18) mg/dL Creatinine 0.6 (0.6-1.0) mg/dL Est Cr Clr Drug Dosing 54.22 mL/min Estimated GFR (MDRD) > 60 (>60) Glucose 123 H (74-106) mg/dL Calcium 8.3 L (8.5-10.1) mg/dL Josiah Results Last 24 Hours: Microbiology 11/06/19 16:18 Aerobic Blood Culture - Preliminary Blood - Arm, Right NO GROWTH AFTER 1 DAY Anaerobic Blood Culture - Preliminary 11/06/19 20:00 Urine Culture - Preliminary Urine, Clean Catch MIXED POSITIVE OITS DAY 1 Med Orders - Current: Current Medications Acetaminophen (Tylenol) 650 mg PO Q4H PRN PRN Reason: Pain (Mild 1-3)/fever Last Admin: 11/07/19 20:02 Dose: 650 mg Albuterol (Proventil Neb Soln) 2.5 mg NEB Q4H PRN PRN Reason: Shortness Of Breath/wheezing Aspirin (Ecotrin) 325 mg PO DAILY [facility] Last Admin: 11/08/19 09:02 Dose: 325 mg Atenolol (Tenormin) 50 mg PO BID [facility] Last Admin: 11/08/19 09:02 Dose: 50 mg Enalapril Maleate (Vasotec) 10 mg PO BID [facility] Last Admin: 11/08/19 09:03 Dose: 10 mg Enoxaparin Sodium (Lovenox) 40 mg SUBCUT DAILY [facility] Last Admin: 11/08/19 09:01 Dose: 40 mg Furosemide (Lasix) 20 mg PO DAILY [facility] Last Admin: 11/08/19 09:02 Dose: 20 mg Cefazolin Sodium/Dextrose 1 gm (/ Premix) 50 mls @ 100 mls/hr IV Q8H [facility] Last Admin: 11/08/19 09:34 Dose: 100 mls/hr Ibuprofen (Motrin) 600 mg PO Q6H PRN PRN Reason: Pain/Fever Last Admin: 11/07/19 03:06 Dose: 600 mg Lactobacillus Rhamnosus (Culturelle) 1 cap PO BID [facility] Last Admin: 11/08/19 09:01 Dose: 1 cap Lorazepam (Ativan) 0.5 mg IVPUSH Q4H PRN PRN Reason: Nausea/Vomiting Magnesium Hydroxide (Milk Of Magnesia) 30 ml PO Q12H PRN PRN Reason: Constipation Melatonin (Melatonin) 9 mg PO BEDTIME [facility] Last Admin: 11/07/19 20:03 Dose: 9 mg Ondansetron HCl (Zofran Odt) 4 mg PO Q6H PRN PRN Reason: Nausea able to take PO Ondansetron HCl (Zofran) 4 mg IV Q6H PRN PRN Reason: Nausea/Vomiting Felodipine 10mg Er (Tab (Ptom)) 0 each PO DAILY [facility] Last Admin: 11/08/19 09:03 Dose: 1 each Potassium Chloride (Potassium Chloride) 10 meq PO BID [facility] Last Admin: 11/08/19 09:01 Dose: 10 meq Pravastatin Sodium (Pravachol) 40 mg PO BEDTIME [facility] Last Admin: 11/07/19 20:04 Dose: 40 mg Senna/Docusate Sodium (Senna Plus) 1 tab PO BID PRN PRN Reason: Constipation Last Admin: 11/08/19 09:20 Dose: 1 tab Sodium Chloride (Saline Flush) 10 ml FLUSH ASDIRECTED PRN PRN Reason: Keep Vein Open Last Admin: 11/06/19 17:16 Dose: 10 ml Discontinued Medications Acetaminophen (Tylenol Extra Strength) 1,000 mg PO ONETIME ONE Stop: 11/06/19 16:05 Last Admin: 11/06/19 16:37 Dose: 1,000 mg Aspirin (Halfprin) 324 mg PO DAILY [facility] Atenolol (Tenormin) Confirm Administered Dose 50 mg .ROUTE .STK-MED ONE Stop: 11/06/19 20:43 Last Admin: 11/06/19 21:00 Dose: Not Given Felodipine (Felodipine Er) 10 mg PO DAILY [facility] Last Admin: 11/07/19 11:16 Dose: Not Given Lactated Ringer's (Ringers, Lactated) 1,000 mls @ 1,000 mls/hr IV BOLUS ONE Stop: 11/06/19 18:08 Last Admin: 11/06/19 17:16 Dose: 1,000 mls/hr Cefazolin Sodium 1 gm/ Sodium (Chloride) 50 mls @ 100 mls/hr IV Q8H [facility] Last Admin: 11/07/19 01:52 Dose: 100 mls/hr Sodium Chloride (Normal Saline) 500 mls @ 500 mls/hr IV ASDIRECTED [facility] Stop: 11/06/19 18:46 Sodium Chloride (Normal Saline) 1,000 mls @ 1,000 mls/hr IV ASDIRECTED [facility] Last Admin: 11/06/19 19:00 Dose: 1,000 mls/hr Sodium Chloride (Normal Saline) 1,000 mls @ 100 mls/hr IV ASDIRECTED [facility] Last Admin: 11/07/19 07:48 Dose: 100 mls/hr Sodium Chloride (Normal Saline) 500 mls @ 500 mls/hr IV .BOLUS ONE Stop: 11/06/19 22:25 Last Admin: 11/06/19 21:39 Dose: 500 mls/hr Metoprolol Tartrate (Lopressor) 25 mg PO ONETIME ONE Stop: 11/08/19 05:13 Last Admin: 11/08/19 05:26 Dose: 25 mg Potassium Chloride (Klor-Con M20) 40 meq PO ONETIME ONE Stop: 11/07/19 10:11 Last Admin: 11/07/19 10:57 Dose: 40 meq - Exam Quality Assessment: No: Supplemental Oxygen General: Alert, Cooperative, No Acute Distress Lungs: Clear to Auscultation, Normal Respiratory Effort Cardiovascular: Regular Rate, Regular Rhythm GI/Abdominal Exam: Soft, No Distention Extremities: Pedal Edema, Increased Warmth (left proximal medial lower leg) Skin: Warm, Dry, Rash (erythema left proximal medial lower leg ) Psy/Mental Status: Alert, Normal Affect Sepsis Event Note - Evaluation Sepsis Screening Result: Sepsis Risk - Focused Exam Vital Signs: Vital Signs Temp Pulse Pulse Resp BP BP Pulse Ox 11/08/19 09:03 124/66 11/08/19 09:02 88 124/66 11/08/19 07:36 37.2 C 85 21 H 105/68 93 L 11/08/19 05:26 140 H 130/70 11/08/19 05:00 36.6 C 140 H 16 130/70 95 11/08/19 01:13 36.6 C 82 16 149/71 H 97 Date Exam was Performed: 11/08/19 Time Exam was Performed: 12:41 - Problem List & Annotations (1) Cellulitis of leg without foot, left SNOMED Code(s): 512161222 Code(s): L03.116 - CELLULITIS OF LEFT LOWER LIMB Status: Acute Current Visit: Yes (2) Sepsis SNOMED Code(s): 04960561 Code(s): A41.9 - SEPSIS, UNSPECIFIED ORGANISM Status: Acute Current Visit : Yes Qualifiers: Sepsis type: sepsis due to unspecified organism Sepsis acute organ dysfunction status: without acute organ dysfunction Qualified Code(s): A41.9 - Sepsis, unspecified organism (3) Essential hypertension SNOMED Code(s): 21032848 Code(s): I10 - ESSENTIAL (PRIMARY) HYPERTENSION Status: Chronic Current Visit: Yes (4) Venous insufficiency of both lower extremities SNOMED Code(s): 202549159 Code(s): I87.2 - VENOUS INSUFFICIENCY (CHRONIC) (PERIPHERAL) Status: Chronic Current Visit: Yes - Problem List Review Problem List Initiated/Reviewed/Updated: Yes - My Orders Last 24 Hours: My Active Orders 11/07/19 09:00 Aspirin [Ecotrin] 325 mg PO DAILY Enoxaparin [Lovenox] 40 mg SUBCUT DAILY Furosemide [Lasix] 20 mg PO DAILY 11/07/19 09:41 Convert IV to Saline Lock [OM.PC] Routine 11/07/19 10:00 ceFAZolin [Ancef] 1 gm Premix Bag 1 bag IV Q8H 11/07/19 14:00 Patient's Own Medication [Ptom] 0 each PO DAILY 11/07/19 21:00 Pravastatin [Pravachol] 40 mg PO BEDTIME 11/08/19 07:13 Cardiac Monitoring [RC] .As Directed 11/09/19 05:00 BASIC METABOLIC PANEL,BMP [CHEM] Timed CBC W/O DIFF,HEMOGRAM [HEME] Timed (1) - Plan Plan:: ASSESSMENT AND PLAN - Left leg cellulitis with sepsis-sepsis has resolved. White blood cell count better. Leg looking better. 1 out of 2 culture bottles is positive for gram- positive cocci but identification pending. Clinically improving. -Antibiotic coverage with cefazolin -Saline lock IV -Pain control -Follow-up cultures Paroxysmal atrial fibrillation-back in sinus rhythm now. The episode is probably related to her infection. -Continue beta-tk -Cardiac monitoring Essential hypertension-blood pressure normal at this time. -Continue home medications Chronic venous insufficiency, suspected-stable. -SHAD stockings once infection settles down Maintenance issues - - DVT prophylaxis -enoxaparin - GI prophylaxis -not indicated - Nutrition -regular diet Disposition -I would anticipate discharge back to her assisted living after the hospital stay Roland Downing M.D.
[2019-11-08] MEDS: Acetaminophen 325 MG Tab PO PRN (14:17)
[2019-11-08] MEDS: Nystatin Topical Powder 15 GM Bottle TOP SCH ×2 (18:23→20:47)
[2019-11-08] MEDS: Melatonin 3 MG Tab PO SCH (20:46)
[2019-11-08] MEDS: Pravastatin 20 MG Tab PO SCH (20:48)
[2019-11-09] MEDS: Acetaminophen 325 MG Tab PO PRN (03:04)
[2019-11-09] MEDS: ceFAZolin 1 GM in Premix Bag 1 BAG IV SCH (03:05)
[2019-11-09] MEDS ORDERED: Potassium Chloride 20 MEQ Tab.ER PO ONE (09:00)
[2019-11-09] MEDS: Potassium Chloride 10 MEQ Cap.ER PO SCH ×2 (09:07→20:12)
[2019-11-09] MEDS: Furosemide 20 MG Tab PO SCH (09:07)
[2019-11-09] MEDS: Lactobacillus Rhamnosus GG (Probiotic) Cap PO SCH ×2 (09:07→20:12)
[2019-11-09] MEDS: Aspirin 325 MG Tab.EC PO SCH (09:08)
[2019-11-09] MEDS: Enoxaparin 40 MG/0.4 ML Syringe SUBCUT SCH (09:08)
[2019-11-09] MEDS: Nystatin Topical Powder 15 GM Bottle TOP SCH ×2 (09:08→20:12)
[2019-11-09] MEDS: Enalapril 5 MG Tab PO SCH ×2 (09:09→20:14)
[2019-11-09] MEDS: FELODIPINE 10 MG PO SCH (09:09)
[2019-11-09] MEDS: Atenolol 50 MG Tab PO SCH ×2 (09:12→20:13)
[2019-11-09] MEDS: cefTRIAXone 2 GM in Sodium Chloride 0.9% 50 ML IV SCH (10:23)
--- NOTE | 2019-11-09 11:45 | PCM.PN ---
- General Info Date of Service: 11/09/19 Subjective Update: Overnight there was difficulty with confusion and restlessness. She was hypoxic last night and required 2 L of supplemental oxygen. She has a very low- grade fever this morning but otherwise her vital signs are stable. She is feeling much better after breakfast. She does not feel short of breath. No complaints of abdominal pain. She has very mild pain in the left lower leg. She is weak and requires the use of a Sarah steady as of this morning. Functional Status: Reports: Pain Controlled, Tolerating Diet - Review of Systems General: Denies: Fever Pulmonary: Reports: Shortness of Breath Psychiatric: Reports: Confusion - Patient Data Vitals - Most Recent: Last Vital Signs Temp 36.1 C 11/09/19 07:00 Pulse 92 11/09/19 09:12 Resp 18 11/09/19 07:00 BP 160/75 H 11/09/19 09:12 Pulse Ox 91 L 11/09/19 07:00 Weight - Most Recent: 64.637 kg I&O - Last 24 Hours: Intake & Output 11/08/19 11/09/19 11/09/19 22:59 06:59 14:59 Intake Total 50 650 410 Output Total 200 300 Balance -150 350 410 Lab Results Last 24 Hours: Laboratory Results - last 24 hr 11/08/19 11/09/19 11/09/19 Range/Units 20:51 04:10 04:10 WBC 10.6 (4.5-11.0) K/uL RBC 4.08 (3.30-5.50) M/uL Hgb 12.2 (12.0-15.0) g/dL Hct 37.6 (36.0-48.0) % MCV 92 (80-98) fL MCH 30 (27-31) pg MCHC 32 (32-36) % Plt Count 249 (150-400) K/uL Sodium 139 L (140-148) mmol/L Potassium 3.3 L (3.6-5.2) mmol/L Chloride 104 (100-108) mmol/L Carbon Dioxide 25 (21-32) mmol/L Anion Gap 13.3 (5.0-14.0) mmol/L BUN 8 (7-18) mg/dL Creatinine 0.4 L (0.6-1.0) mg/dL Est Cr Clr Drug Dosing 81.33 mL/min Estimated GFR (MDRD) > 60 (>60) Glucose 111 H (74-106) mg/dL Calcium 8.0 L (8.5-10.1) mg/dL Urine Color Yellow (YELLOW) Urine Appearance Slightly cloudy A (CLEAR) Urine pH 6.0 (5.0-8.0) Ur Specific [place] 1.020 (1.008-1.030) Urine Protein Negative (NEGATIVE) mg/dL Urine Glucose (UA) Negative (NEGATIVE) mg/dL Urine Ketones Negative (NEGATIVE) mg/dL Urine Occult Blood Moderate H (NEGATIVE) Urine Nitrite Negative (NEGATIVE) Urine Bilirubin Negative (NEGATIVE) Urine Urobilinogen 0.2 (0.2-1.0) EU/dL Ur Leukocyte Esterase Negative (NEGATIVE) Urine RBC 5-10 H (0-5) Urine WBC 0-5 (0-5) Ur Epithelial Cells Few Amorphous Sediment Not seen Urine Bacteria Moderate Urine Mucus Few Josiah Results Last 24 Hours: Microbiology 11/06/19 16:18 Aerobic Blood Culture - Preliminary Blood - Arm, Right NO GROWTH AFTER 2 DAYS Anaerobic Blood Culture - Final Beta Strep Not Group A Or B 11/06/19 20:00 Urine Culture - Final Urine, Clean Catch MIXED POSITIVE OTIS DAY 2 Med Orders - Current: Current Medications Acetaminophen (Tylenol) 650 mg PO Q4H PRN PRN Reason: Pain (Mild 1-3)/fever Last Admin: 11/09/19 03:04 Dose: 650 mg Albuterol (Proventil Neb Soln) 2.5 mg NEB Q4H PRN PRN Reason: Shortness Of Breath/wheezing Aspirin (Ecotrin) 325 mg PO DAILY [facility] Last Admin: 11/09/19 09:08 Dose: 325 mg Atenolol (Tenormin) 50 mg PO BID [facility] Last Admin: 11/09/19 09:12 Dose: 50 mg Enalapril Maleate (Vasotec) 10 mg PO BID [facility] Last Admin: 11/09/19 09:09 Dose: 10 mg Enoxaparin Sodium (Lovenox) 40 mg SUBCUT DAILY [facility] Last Admin: 11/09/19 09:08 Dose: 40 mg Furosemide (Lasix) 20 mg PO DAILY [facility] Last Admin: 11/09/19 09:07 Dose: 20 mg Ceftriaxone Sodium 2 gm/ (Sodium Chloride) 50 mls @ 100 mls/hr IV Q24H [facility] Last Admin: 11/09/19 10:23 Dose: 100 mls/hr Ibuprofen (Motrin) 600 mg PO Q6H PRN PRN Reason: Pain/Fever Last Admin: 11/07/19 03:06 Dose: 600 mg Lactobacillus Rhamnosus (Culturelle) 1 cap PO BID [facility] Last Admin: 11/09/19 09:07 Dose: 1 cap Lorazepam (Ativan) 0.5 mg IVPUSH Q4H PRN PRN Reason: Nausea/Vomiting Magnesium Hydroxide (Milk Of Magnesia) 30 ml PO Q12H PRN PRN Reason: Constipation Melatonin (Melatonin) 9 mg PO BEDTIME [facility] Last Admin: 11/08/19 20:46 Dose: 9 mg Nystatin (Nystop) 0 gm TOP BID [facility] Last Admin: 11/09/19 09:08 Dose: 1 applic Ondansetron HCl (Zofran Odt) 4 mg PO Q6H PRN PRN Reason: Nausea able to take PO Ondansetron HCl (Zofran) 4 mg IV Q6H PRN PRN Reason: Nausea/Vomiting Felodipine 10mg Er (Tab (Ptom)) 0 each PO DAILY [facility] Last Admin: 11/09/19 09:09 Dose: 1 each Potassium Chloride (Potassium Chloride) 10 meq PO BID [facility] Last Admin: 11/09/19 09:07 Dose: 10 meq Pravastatin Sodium (Pravachol) 40 mg PO BEDTIME [facility] Last Admin: 11/08/19 20:48 Dose: 40 mg Senna/Docusate Sodium (Senna Plus) 1 tab PO BID PRN PRN Reason: Constipation Last Admin: 11/08/19 09:20 Dose: 1 tab Sodium Chloride (Saline Flush) 10 ml FLUSH ASDIRECTED PRN PRN Reason: Keep Vein Open Last Admin: 11/06/19 17:16 Dose: 10 ml Discontinued Medications Acetaminophen (Tylenol Extra Strength) 1,000 mg PO ONETIME ONE Stop: 11/06/19 16:05 Last Admin: 11/06/19 16:37 Dose: 1,000 mg Aspirin (Halfprin) 324 mg PO DAILY [facility] Atenolol (Tenormin) Confirm Administered Dose 50 mg .ROUTE .STK-MED ONE Stop: 11/06/19 20:43 Last Admin: 11/06/19 21:00 Dose: Not Given Felodipine (Felodipine Er) 10 mg PO DAILY [facility] Last Admin: 11/07/19 11:16 Dose: Not Given Lactated Ringer's (Ringers, Lactated) 1,000 mls @ 1,000 mls/hr IV BOLUS ONE Stop: 11/06/19 18:08 Last Admin: 11/06/19 17:16 Dose: 1,000 mls/hr Cefazolin Sodium 1 gm/ Sodium (Chloride) 50 mls @ 100 mls/hr IV Q8H [facility] Last Admin: 11/07/19 01:52 Dose: 100 mls/hr Sodium Chloride (Normal Saline) 500 mls @ 500 mls/hr IV ASDIRECTED [facility] Stop: 11/06/19 18:46 Sodium Chloride (Normal Saline) 1,000 mls @ 1,000 mls/hr IV ASDIRECTED [facility] Last Admin: 11/06/19 19:00 Dose: 1,000 mls/hr Sodium Chloride (Normal Saline) 1,000 mls @ 100 mls/hr IV ASDIRECTED [facility] Last Admin: 11/07/19 07:48 Dose: 100 mls/hr Sodium Chloride (Normal Saline) 500 mls @ 500 mls/hr IV .BOLUS ONE Stop: 11/06/19 22:25 Last Admin: 11/06/19 21:39 Dose: 500 mls/hr Cefazolin Sodium/Dextrose 1 gm (/ Premix) 50 mls @ 100 mls/hr IV Q8H [facility] Last Admin: 11/09/19 03:05 Dose: 100 mls/hr Metoprolol Tartrate (Lopressor) 25 mg PO ONETIME ONE Stop: 11/08/19 05:13 Last Admin: 11/08/19 05:26 Dose: 25 mg Potassium Chloride (Klor-Con M20) 40 meq PO ONETIME ONE Stop: 11/07/19 10:11 Last Admin: 11/07/19 10:57 Dose: 40 meq Potassium Chloride (Klor-Con M20) 40 meq PO ONETIME ONE Stop: 11/09/19 09:01 Last Admin: 11/09/19 09:08 Dose: 40 meq - Exam Quality Assessment: No: Supplemental Oxygen General: Alert, Oriented, Cooperative, No Acute Distress Lungs: Clear to Auscultation, Normal Respiratory Effort Cardiovascular: Regular Rate, Regular Rhythm GI/Abdominal Exam: Soft, No Distention Extremities: Pedal Edema, Increased Warmth (mild left lower leg medial and distal to the knee ) Skin: Warm, Dry Psy/Mental Status: Alert, Normal Affect Sepsis Event Note - Evaluation Sepsis Screening Result: No Definite Risk - Focused Exam Vital Signs: Vital Signs Temp Temp Pulse Pulse Resp BP BP 11/09/19 09:12 92 160/75 H 11/09/19 09:09 160/75 H 11/09/19 07:00 36.1 C 65 18 132/53 L 11/09/19 03:34 35.7 C L 11/09/19 03:04 37.4 C 11/09/19 03:00 37.4 C 81 16 151/67 H Pulse Ox 11/09/19 09:12 11/09/19 09:09 11/09/19 07:00 91 L 11/09/19 03:34 11/09/19 03:04 11/09/19 03:00 91 L Date Exam was Performed: 11/09/19 Time Exam was Performed: 11:42 - Problem List & Annotations (1) Cellulitis of leg without foot, left SNOMED Code(s): 058117792 Code(s): L03.116 - CELLULITIS OF LEFT LOWER LIMB Status: Acute Current Visit: Yes (2) Sepsis SNOMED Code(s): 69057346 Code(s): A41.9 - SEPSIS, UNSPECIFIED ORGANISM Status: Acute Current Visit : Yes Qualifiers: Sepsis type: sepsis due to unspecified organism Sepsis acute organ dysfunction status: without acute organ dysfunction Qualified Code(s): A41.9 - Sepsis, unspecified organism (3) Essential hypertension SNOMED Code(s): 44864119 Code(s): I10 - ESSENTIAL (PRIMARY) HYPERTENSION Status: Chronic Current Visit: Yes (4) Venous insufficiency of both lower extremities SNOMED Code(s): 089001541 Code(s): I87.2 - VENOUS INSUFFICIENCY (CHRONIC) (PERIPHERAL) Status: Chronic Current Visit: Yes - Problem List Review Problem List Initiated/Reviewed/Updated: Yes - My Orders Last 24 Hours: My Active Orders 11/08/19 14:00 Nystatin [Nystop] 0 gm TOP BID 11/09/19 08:21 CXR [Chest 2V] [CR] Routine 11/09/19 08:31 PT Evaluation and Treatment [CONS] Routine 11/09/19 10:00 cefTRIAXone [Rocephin] 2 gm Sodium Chloride 0.9% [Normal Saline] 50 ml IV Q24H 11/09/19 11:41 Discontinue Telemetry Monitoring [Cardiac Monitoring Discontinue] [RC] Click to Edit 11/10/19 05:00 BASIC METABOLIC PANEL,BMP [CHEM] Timed CBC W/O DIFF,HEMOGRAM [HEME] Timed (1) - Plan Plan:: ASSESSMENT AND PLAN - Left leg cellulitis with sepsis-sepsis has resolved. White blood cell count better. Leg looking better. Blood culture did grow out strep, not group A or group B. -Antibiotic coverage with ceftriaxone -Saline lock IV -Pain control -Follow-up cultures -Physical therapy for weakness Hyperactive delirium-probably multifactorial with infection, intensive care unit stay as a med overflow and then a change to a different bed. Much better this morning. Has not been sleeping well. -Melatonin at bedtime Paroxysmal atrial fibrillation-back in sinus rhythm. -Continue beta-tk -Discontinue cardiac monitoring Essential hypertension-blood pressure normal at this time. -Continue home medications Chronic venous insufficiency, suspected-stable. -SHAD stockings Maintenance issues - - DVT prophylaxis -enoxaparin - GI prophylaxis -not indicated - Nutrition -regular diet Disposition -I would anticipate discharge back to her assisted living after the hospital stay unless she is too weak to be independent then she may need a short rehab stay Roland Downing M.D.
--- NOTE | 2019-11-09 13:49 | CR ---
CHEST: 2 view CLINICAL HISTORY:Hypoxia COMPARISON:None FINDINGS: Heart size is upper limits of normal. There are atherosclerotic changes in the aorta.. Pulmonary vascularity is mildly cephalized. There are bilateral pleural effusions right greater than left. Impression: Bilateral pleural effusions right greater than left. Mild pulmonary venous congestion
[2019-11-09] MEDS: Pravastatin 20 MG Tab PO SCH (20:13)
[2019-11-09] MEDS: Melatonin 3 MG Tab PO SCH (22:26)
[2019-11-10] MEDS: Aspirin 325 MG Tab.EC PO SCH (08:19)
[2019-11-10] MEDS: Lactobacillus Rhamnosus GG (Probiotic) Cap PO SCH ×2 (08:20→20:23)
[2019-11-10] MEDS: Furosemide 20 MG Tab PO SCH (08:20)
[2019-11-10] MEDS: Enalapril 5 MG Tab PO SCH ×2 (08:20→20:24)
[2019-11-10] MEDS: Potassium Chloride 10 MEQ Cap.ER PO SCH ×2 (08:20→20:24)
[2019-11-10] MEDS: Nystatin Topical Powder 15 GM Bottle TOP SCH ×3 (08:21→20:45)
[2019-11-10] MEDS: FELODIPINE 10 MG PO SCH (08:21)
[2019-11-10] MEDS: Atenolol 50 MG Tab PO SCH (08:21)
[2019-11-10] MEDS: Enoxaparin 40 MG/0.4 ML Syringe SUBCUT SCH (08:22)
[2019-11-10] MEDS: cefTRIAXone 2 GM in Sodium Chloride 0.9% 50 ML IV SCH (10:33)
--- NOTE | 2019-11-10 14:41 | PCM.PN ---
- General Info Date of Service: 11/10/19 Subjective Update: Ms. Pratt has experienced lower blood pressures and heart rate this morning, otherwise has been doing well. Cellulitis appears to have resolved and she has remained afebrile with a normal white blood cell count. Delirium has improved significantly, she remains pleasantly confused. She is unable to provide a meaningful history concerning her recent symptoms or review of systems because of her underlying dementia. - Patient Data Vitals - Most Recent: Last Vital Signs Temp 97.4 F 11/10/19 10:38 Pulse 48 L 11/10/19 11:16 Resp 16 11/10/19 10:38 BP 87/42 L 11/10/19 11:07 Pulse Ox 98 11/10/19 11:07 Weight - Most Recent: 142 lb 8.003 oz I&O - Last 24 Hours: Intake & Output 11/09/19 11/10/19 11/10/19 22:59 06:59 14:59 Intake Total 240 600 170 Balance 240 600 170 Lab Results Last 24 Hours: Laboratory Results - last 24 hr 11/10/19 11/10/19 Range/Units 05:50 05:50 WBC 7.8 (4.5-11.0) K/uL RBC 4.03 (3.30-5.50) M/uL Hgb 12.0 (12.0-15.0) g/dL Hct 37.5 (36.0-48.0) % MCV 93 (80-98) fL MCH 30 (27-31) pg MCHC 32 (32-36) % Plt Count 285 (150-400) K/uL Sodium 141 (140-148) mmol/L Potassium 4.2 (3.6-5.2) mmol/L Chloride 106 (100-108) mmol/L Carbon Dioxide 25 (21-32) mmol/L Anion Gap 9.8 (5.0-14.0) mmol/L BUN 10 (7-18) mg/dL Creatinine 0.4 L (0.6-1.0) mg/dL Est Cr Clr Drug Dosing 80.62 mL/min Estimated GFR (MDRD) > 60 (>60) Glucose 96 (74-106) mg/dL Calcium 8.2 L (8.5-10.1) mg/dL Josiah Results Last 24 Hours: Microbiology 11/08/19 21:00 Urine Culture - Preliminary Urine, Clean Catch NO GROWTH AFTER 1 DAY 11/06/19 16:18 Aerobic Blood Culture - Preliminary Blood - Arm, Right NO GROWTH AFTER 3 DAYS Anaerobic Blood Culture - Final Beta Strep Not Group A Or B Med Orders - Current: Current Medications Acetaminophen (Tylenol) 650 mg PO Q4H PRN PRN Reason: Pain (Mild 1-3)/fever Last Admin: 11/09/19 03:04 Dose: 650 mg Albuterol (Proventil Neb Soln) 2.5 mg NEB Q4H PRN PRN Reason: Shortness Of Breath/wheezing Aspirin (Ecotrin) 325 mg PO DAILY [facility] Last Admin: 11/10/19 08:19 Dose: 325 mg Atenolol (Tenormin) 25 mg PO BID [facility] Cephalexin (Keflex) 500 mg PO Q8H [facility] Enalapril Maleate (Vasotec) 10 mg PO BID [facility] Last Admin: 11/10/19 08:20 Dose: 10 mg Enoxaparin Sodium (Lovenox) 40 mg SUBCUT DAILY [facility] Last Admin: 11/10/19 08:22 Dose: 40 mg Furosemide (Lasix) 20 mg PO DAILY [facility] Last Admin: 11/10/19 08:20 Dose: 20 mg Ibuprofen (Motrin) 600 mg PO Q6H PRN PRN Reason: Pain/Fever Last Admin: 11/07/19 03:06 Dose: 600 mg Lactobacillus Rhamnosus (Culturelle) 1 cap PO BID [facility] Last Admin: 11/10/19 08:20 Dose: 1 cap Magnesium Hydroxide (Milk Of Magnesia) 30 ml PO Q12H PRN PRN Reason: Constipation Melatonin (Melatonin) 9 mg PO BEDTIME [facility] Last Admin: 11/09/19 22:26 Dose: 9 mg Nystatin (Nystop) 0 gm TOP BID [facility] Last Admin: 11/10/19 08:21 Dose: 1 applic Ondansetron HCl (Zofran Odt) 4 mg PO Q6H PRN PRN Reason: Nausea able to take PO Ondansetron HCl (Zofran) 4 mg IV Q6H PRN PRN Reason: Nausea/Vomiting Potassium Chloride (Potassium Chloride) 10 meq PO BID [facility] Last Admin: 11/10/19 08:20 Dose: 10 meq Pravastatin Sodium (Pravachol) 40 mg PO BEDTIME [facility] Last Admin: 11/09/19 20:13 Dose: 40 mg Senna/Docusate Sodium (Senna Plus) 1 tab PO BID PRN PRN Reason: Constipation Last Admin: 11/08/19 09:20 Dose: 1 tab Sodium Chloride (Saline Flush) 10 ml FLUSH ASDIRECTED PRN PRN Reason: Keep Vein Open Last Admin: 11/06/19 17:16 Dose: 10 ml Discontinued Medications Acetaminophen (Tylenol Extra Strength) 1,000 mg PO ONETIME ONE Stop: 11/06/19 16:05 Last Admin: 11/06/19 16:37 Dose: 1,000 mg Aspirin (Halfprin) 324 mg PO DAILY [facility] Atenolol (Tenormin) 50 mg PO BID [facility] Last Admin: 11/10/19 08:21 Dose: 50 mg Atenolol (Tenormin) Confirm Administered Dose 50 mg .ROUTE .STK-MED ONE Stop: 11/06/19 20:43 Last Admin: 11/06/19 21:00 Dose: Not Given Felodipine (Felodipine Er) 10 mg PO DAILY [facility] Last Admin: 11/07/19 11:16 Dose: Not Given Lactated Ringer's (Ringers, Lactated) 1,000 mls @ 1,000 mls/hr IV BOLUS ONE Stop: 11/06/19 18:08 Last Admin: 11/06/19 17:16 Dose: 1,000 mls/hr Cefazolin Sodium 1 gm/ Sodium (Chloride) 50 mls @ 100 mls/hr IV Q8H [facility] Last Admin: 11/07/19 01:52 Dose: 100 mls/hr Sodium Chloride (Normal Saline) 500 mls @ 500 mls/hr IV ASDIRECTED [facility] Stop: 11/06/19 18:46 Sodium Chloride (Normal Saline) 1,000 mls @ 1,000 mls/hr IV ASDIRECTED [facility] Last Admin: 11/06/19 19:00 Dose: 1,000 mls/hr Sodium Chloride (Normal Saline) 1,000 mls @ 100 mls/hr IV ASDIRECTED [facility] Last Admin: 11/07/19 07:48 Dose: 100 mls/hr Sodium Chloride (Normal Saline) 500 mls @ 500 mls/hr IV .BOLUS ONE Stop: 11/06/19 22:25 Last Admin: 11/06/19 21:39 Dose: 500 mls/hr Cefazolin Sodium/Dextrose 1 gm (/ Premix) 50 mls @ 100 mls/hr IV Q8H [facility] Last Admin: 11/09/19 03:05 Dose: 100 mls/hr Ceftriaxone Sodium 2 gm/ (Sodium Chloride) 50 mls @ 100 mls/hr IV Q24H [facility] Last Admin: 11/10/19 10:33 Dose: 100 mls/hr Lorazepam (Ativan) 0.5 mg IVPUSH Q4H PRN PRN Reason: Nausea/Vomiting Metoprolol Tartrate (Lopressor) 25 mg PO ONETIME ONE Stop: 11/08/19 05:13 Last Admin: 11/08/19 05:26 Dose: 25 mg Felodipine 10mg Er (Tab (Ptom)) 0 each PO DAILY [facility] Last Admin: 11/10/19 08:21 Dose: 1 each Potassium Chloride (Klor-Con M20) 40 meq PO ONETIME ONE Stop: 11/07/19 10:11 Last Admin: 11/07/19 10:57 Dose: 40 meq Potassium Chloride (Klor-Con M20) 40 meq PO ONETIME ONE Stop: 11/09/19 09:01 Last Admin: 11/09/19 09:08 Dose: 40 meq - Exam Quality Assessment: DVT Prophylaxis General: Alert, Cooperative, No Acute Distress. No: Oriented Lungs: Clear to Auscultation, Normal Respiratory Effort Cardiovascular: Regular Rate, Regular Rhythm, No Murmurs GI/Abdominal Exam: Soft, Non-Tender, No Organomegaly, No Distention Extremities: Non-Tender, Pedal Edema Sepsis Event Note - Evaluation Sepsis Screening Result: No Definite Risk - Focused Exam Vital Signs: Vital Signs Temp Pulse Pulse Resp BP BP Pulse Ox 11/10/19 11:16 48 L 11/10/19 11:07 53 L 87/42 L 98 11/10/19 10:38 97.4 F 106 H 16 89/44 L 95 11/10/19 08:21 64 137/62 11/10/19 08:20 137/62 11/10/19 07:07 98.7 F 64 16 137/62 92 L 11/10/19 03:00 98.7 F 66 16 150/67 H 93 L Date Exam was Performed: 11/10/19 Time Exam was Performed: 14:37 - Problem List Review Problem List Initiated/Reviewed/Updated: Yes - My Orders Last 24 Hours: My Active Orders 11/10/19 14:45 cephALEXin [Keflex] 500 mg PO Q8H 11/10/19 21:00 atenoloL [Tenormin] 25 mg PO BID - Plan Plan:: ASSESSMENT AND PLAN - Left leg cellulitis with sepsis-fully resolved, no evidence of residual infection -Discontinue ceftriaxone -Cephalexin 500 mg p.o. every 8 hours -Saline lock IV -Pain control -Follow-up cultures -Physical therapy for weakness Hyperactive delirium-resolved -Melatonin at bedtime Paroxysmal atrial fibrillation-remains in sinus rhythm. -Continue beta-tk, decreased dose of atenolol to 25 mg twice daily because of hypotension and bradycardia -Discontinue cardiac monitoring Essential hypertension-blood pressure low today -Hold felodipine Chronic venous insufficiency, suspected-stable. -SHAD stockings Maintenance issues - - DVT prophylaxis -enoxaparin - GI prophylaxis -not indicated - Nutrition -regular diet Disposition -I would anticipate discharge back to her assisted living after the hospital stay unless she is too weak to be independent then she may need a short rehab stay Roland Downing M.D.
[2019-11-10] MEDS: Cephalexin 250 MG Cap PO SCH ×2 (15:29→23:47)
[2019-11-10] MEDS: Melatonin 3 MG Tab PO SCH (20:23)
[2019-11-10] MEDS: Pravastatin 20 MG Tab PO SCH (20:24)
[2019-11-10] MEDS: Atenolol 25 MG Tab PO SCH (20:24)
[2019-11-11] MEDS: Cephalexin 250 MG Cap PO SCH (07:18)
[2019-11-11] MEDS: Lactobacillus Rhamnosus GG (Probiotic) Cap PO SCH (09:28)
[2019-11-11] MEDS: Aspirin 325 MG Tab.EC PO SCH (09:29)
[2019-11-11] MEDS: Furosemide 20 MG Tab PO SCH (09:29)
[2019-11-11] MEDS: Potassium Chloride 10 MEQ Cap.ER PO SCH (09:30)
[2019-11-11] MEDS: Atenolol 25 MG Tab PO SCH (09:31)
[2019-11-11] MEDS: Enalapril 5 MG Tab PO SCH (09:33)
[2019-11-11] MEDS: Enoxaparin 40 MG/0.4 ML Syringe SUBCUT SCH (09:36)
[2019-11-11] MEDS: Nystatin Topical Powder 15 GM Bottle TOP SCH (09:40)
--- NOTE | 2019-11-11 10:25 | PCM.DCSUM1 ---
Discharge Summary - Hospital Course Brief History: Ms. Sandoval is an 84-year-old woman who was admitted through the emergency department with weakness and fever secondary to cellulitis and associated sepsis of the left lower extremity. - Discharge Data Discharge Date: 11/11/19 Discharge Disposition: DC/Tfer to SNF 03 Condition: Fair - Referral to Home Health Primary Care Physician: Jayce Romero MD - Discharge Diagnosis/Problem(s) (1) Paroxysmal atrial fibrillation with rapid ventricular response SNOMED Code(s): 341173882, 394216900756692 ICD Code: I48.0 - PAROXYSMAL ATRIAL FIBRILLATION Status: Acute Current Visit: Yes (2) Cellulitis of leg without foot, left SNOMED Code(s): 438082710 ICD Code: L03.116 - CELLULITIS OF LEFT LOWER LIMB Status: Acute Current Visit: Yes (3) Sepsis SNOMED Code(s): 79803454 ICD Code: A41.9 - SEPSIS, UNSPECIFIED ORGANISM Status: Acute Current Visit: Yes Qualifiers: Sepsis type: sepsis due to unspecified organism Sepsis acute organ dysfunction status: without acute organ dysfunction Qualified Code(s): A41.9 - Sepsis, unspecified organism (4) Essential hypertension SNOMED Code(s): 86193436 ICD Code: I10 - ESSENTIAL (PRIMARY) HYPERTENSION Status: Chronic Current Visit: Yes - Patient Summary/Data Consults: Consultations 11/09/19 08:31 PT Evaluation and Treatment [CONS] Routine Please Evaluate and Treat. PT Reason for Consult: Strengthening Pending Discharge: Yes Discharge Disposition: Home w Home Health Special Instructions: or snf This query below is only for informational purposes and is not editable. Admission Diagnosis/Problem: Cellulitis of leg Hospital Course: Ms. Sandoval presented to the emergency room with a fever greater than 103 degrees. She reports off-and-on difficulties with some redness of her lower extremities for the past several weeks. She does not think the redness is dramatically different other than on the left leg which may be slightly more red. Swelling is about usual for her over the past few weeks. Over the past several days she has had some subjective temperatures and today a temperature greater than 103 was measured at her assisted living facility. She feels a little weak and has lost her appetite. She has had some mild achy pain in the lower legs that does get better with Tylenol. She has never had an infection in either of her legs in the past. No recent antibiotics. No sick contacts. She does report a mild sore throat and rhinorrhea. Work-up in the emergency room was suggestive of a left leg cellulitis with mild sepsis. She has received 1 L of fluids. She will be receiving 500 more milliliters as well as antibiotics and then will be admitted for further management. On admission she was given IV fluids for hydration and started on IV antibiotic therapy with cefazolin. Cellulitis in the left leg improved over the next few days of antibiotic therapy and sepsis resolved. 1 of 2 blood cultures did grow out non- A non-B Streptococcus. Prior to discharge she was transitioned to oral antibiotic therapy with cephalexin. Hospital course was complicated by paroxysmal atrial fibrillation, this resolved spontaneously and did not require further management. On the day prior to discharge she was noted to have significant hypotension and bradycardia. Dose of atenolol was decreased to 25 mg twice daily and her felodipine was discontinued. By the day of discharge hypotension and bradycardia had resolved with these medication changes. She did experience hyperactive delirium during her hospital stay, exacerbating underlying dementia. This also had improved significantly by the time of discharge and she will be discharged to the shelter on melatonin 9 mg p.o. nightly. Activity will be as tolerated and she will be on a low-sodium diet. Daily restorative physical therapy and occupational therapy will be ordered at the shelter. Follow-up with primary care will be as needed at the shelter. - Patient Instructions Diet: Heart Healthy Diet Activity: As Tolerated Other/Special Instructions: Daily physical therapy and occupational therapy while at the shelter. - Discharge Plan *PRESCRIPTION DRUG MONITORING PROGRAM REVIEWED*: No *COPY OF PRESCRIPTION DRUG MONITORING REPORT IN PATIENT JULIO CESAR: No Prescriptions/Med Rec: atenoloL [Tenormin] 25 mg PO BID #60 tablet cephALEXin [Keflex] 500 mg PO Q8H #9 cap Lactobacillus Rhamnosus GG [Culturelle] 1 cap PO BID #60 cap Melatonin 9 mg PO BEDTIME #90 tablet Home Medications: Home Meds Acetaminophen 500 mg PO Q4HR PRN 01/24/17 [History] Aspirin 324 mg PO DAILY 01/24/17 [History] Enalapril [Vasotec] 10 mg PO BID 01/24/17 [History] Furosemide [Lasix] 20 mg PO DAILY 01/24/17 [History] Glucosamine Sulfate 1,000 mg PO BID 01/24/17 [History] Multivitamin with Minerals [Multiple Vitamin] 1 tab PO DAILY 01/24/17 [History] Potassium Chloride [Klor-Con M10] 10 meq PO BID 01/24/17 [History] Pravastatin [Pravachol] 40 mg PO DAILY 01/24/17 [History] Lactobacillus Rhamnosus GG [Culturelle] 1 cap PO BID #60 cap 11/11/19 [Rx] Melatonin 9 mg PO BEDTIME #90 tablet 11/11/19 [Rx] atenoloL [Tenormin] 25 mg PO BID #60 tablet 11/11/19 [Rx] cephALEXin [Keflex] 500 mg PO Q8H #9 cap 11/11/19 [Rx] Patient Handouts: Cellulitis, Adult, [id number] Referrals: Jayce Romero MD [Primary Care Provider] - - Discharge Summary/Plan Comment DC Time >30 min.: No - Patient Data Vitals - Most Recent: Last Vital Signs Temp 99.1 F 11/11/19 07:02 Pulse 69 11/11/19 09:31 Resp 16 11/11/19 07:02 BP 140/61 11/11/19 09:33 Pulse Ox 94 L 11/11/19 07:02 Weight - Most Recent: 142 lb 8.003 oz I&O - Last 24 hours: Intake & Output 11/10/19 11/11/19 11/11/19 22:59 06:59 14:59 Intake Total 240 300 Balance 240 300 LIZANDRO Results - Last 24 hrs: Microbiology 11/08/19 21:00 Urine Culture - Final Urine, Clean Catch NO GROWTH AFTER 2 DAYS 11/06/19 16:18 Aerobic Blood Culture - Preliminary Blood - Arm, Right NO GROWTH AFTER 4 DAYS Anaerobic Blood Culture - Final Beta Strep Not Group A Or B Med Orders - Current: Current Medications Acetaminophen (Tylenol) 650 mg PO Q4H PRN PRN Reason: Pain (Mild 1-3)/fever Last Admin: 11/09/19 03:04 Dose: 650 mg Albuterol (Proventil Neb Soln) 2.5 mg NEB Q4H PRN PRN Reason: Shortness Of Breath/wheezing Aspirin (Ecotrin) 325 mg PO DAILY [facility] Last Admin: 11/11/19 09:29 Dose: 325 mg Atenolol (Tenormin) 25 mg PO BID [facility] Last Admin: 11/11/19 09:31 Dose: 25 mg Cephalexin (Keflex) 500 mg PO Q8H [facility] Last Admin: 11/11/19 07:18 Dose: 500 mg Enalapril Maleate (Vasotec) 10 mg PO BID [facility] Last Admin: 11/11/19 09:33 Dose: 10 mg Enoxaparin Sodium (Lovenox) 40 mg SUBCUT DAILY [facility] Last Admin: 11/11/19 09:36 Dose: 40 mg Furosemide (Lasix) 20 mg PO DAILY [facility] Last Admin: 11/11/19 09:29 Dose: 20 mg Ibuprofen (Motrin) 600 mg PO Q6H PRN PRN Reason: Pain/Fever Last Admin: 11/07/19 03:06 Dose: 600 mg Lactobacillus Rhamnosus (Culturelle) 1 cap PO BID [facility] Last Admin: 11/11/19 09:28 Dose: 1 cap Magnesium Hydroxide (Milk Of Magnesia) 30 ml PO Q12H PRN PRN Reason: Constipation Melatonin (Melatonin) 9 mg PO BEDTIME [facility] Last Admin: 11/10/19 20:23 Dose: 9 mg Nystatin (Nystop) 0 gm TOP BID [facility] Last Admin: 11/11/19 09:40 Dose: 1 applic Ondansetron HCl (Zofran Odt) 4 mg PO Q6H PRN PRN Reason: Nausea able to take PO Ondansetron HCl (Zofran) 4 mg IV Q6H PRN PRN Reason: Nausea/Vomiting Potassium Chloride (Potassium Chloride) 10 meq PO BID [facility] Last Admin: 11/11/19 09:30 Dose: 10 meq Pravastatin Sodium (Pravachol) 40 mg PO BEDTIME [facility] Last Admin: 11/10/19 20:24 Dose: 40 mg Senna/Docusate Sodium (Senna Plus) 1 tab PO BID PRN PRN Reason: Constipation Last Admin: 11/08/19 09:20 Dose: 1 tab Sodium Chloride (Saline Flush) 10 ml FLUSH ASDIRECTED PRN PRN Reason: Keep Vein Open Last Admin: 11/06/19 17:16 Dose: 10 ml Discontinued Medications Acetaminophen (Tylenol Extra Strength) 1,000 mg PO ONETIME ONE Stop: 11/06/19 16:05 Last Admin: 11/06/19 16:37 Dose: 1,000 mg Aspirin (Halfprin) 324 mg PO DAILY [facility] Atenolol (Tenormin) 50 mg PO BID [facility] Last Admin: 11/10/19 08:21 Dose: 50 mg Atenolol (Tenormin) Confirm Administered Dose 50 mg .ROUTE .STK-MED ONE Stop: 11/06/19 20:43 Last Admin: 11/06/19 21:00 Dose: Not Given Felodipine (Felodipine Er) 10 mg PO DAILY [facility] Last Admin: 11/07/19 11:16 Dose: Not Given Lactated Ringer's (Ringers, Lactated) 1,000 mls @ 1,000 mls/hr IV BOLUS ONE Stop: 11/06/19 18:08 Last Admin: 11/06/19 17:16 Dose: 1,000 mls/hr Cefazolin Sodium 1 gm/ Sodium (Chloride) 50 mls @ 100 mls/hr IV Q8H [facility] Last Admin: 11/07/19 01:52 Dose: 100 mls/hr Sodium Chloride (Normal Saline) 500 mls @ 500 mls/hr IV ASDIRECTED [facility] Stop: 11/06/19 18:46 Sodium Chloride (Normal Saline) 1,000 mls @ 1,000 mls/hr IV ASDIRECTED [facility] Last Admin: 11/06/19 19:00 Dose: 1,000 mls/hr Sodium Chloride (Normal Saline) 1,000 mls @ 100 mls/hr IV ASDIRECTED [facility] Last Admin: 11/07/19 07:48 Dose: 100 mls/hr Sodium Chloride (Normal Saline) 500 mls @ 500 mls/hr IV .BOLUS ONE Stop: 11/06/19 22:25 Last Admin: 11/06/19 21:39 Dose: 500 mls/hr Cefazolin Sodium/Dextrose 1 gm (/ Premix) 50 mls @ 100 mls/hr IV Q8H [facility] Last Admin: 11/09/19 03:05 Dose: 100 mls/hr Ceftriaxone Sodium 2 gm/ (Sodium Chloride) 50 mls @ 100 mls/hr IV Q24H [facility] Last Admin: 11/10/19 10:33 Dose: 100 mls/hr Lorazepam (Ativan) 0.5 mg IVPUSH Q4H PRN PRN Reason: Nausea/Vomiting Metoprolol Tartrate (Lopressor) 25 mg PO ONETIME ONE Stop: 11/08/19 05:13 Last Admin: 11/08/19 05:26 Dose: 25 mg Felodipine 10mg Er (Tab (Ptom)) 0 each PO DAILY [facility] Last Admin: 11/10/19 08:21 Dose: 1 each Potassium Chloride (Klor-Con M20) 40 meq PO ONETIME ONE Stop: 11/07/19 10:11 Last Admin: 11/07/19 10:57 Dose: 40 meq Potassium Chloride (Klor-Con M20) 40 meq PO ONETIME ONE Stop: 11/09/19 09:01 Last Admin: 11/09/19 09:08 Dose: 40 meq - Exam General: Reports: Alert, Cooperative, No Acute Distress. Denies: Oriented Lungs: Reports: Clear to Auscultation, Normal Respiratory Effort Cardiovascular: Reports: Regular Rate, Regular Rhythm, No Murmurs GI/Abdominal Exam: Soft, Non-Tender, No Organomegaly, No Distention Skin: Reports: Other (Changes of venous stasis both lower extremities) *Q Meaningful Use (DIS) - VTE *Q VTE Mechanical Contraindications *Q: Bilateral Lower Edema
[2019-11-11 11:17] VITALS: BP 133/67; PULSE 60
== END 2019-11-11 13:47 | DRG 872 ==
LOC: JP.ED 15:53 → JP.ICU 17:44 → JP.MS 11-08 11:04
PROVIDERS: ADMIT Internal Medicine; ATTEND Hospitalist
DX: A40.9 Streptococcal sepsis, unspecified (principal); L03.115 Cellulitis of right lower limb; L03.116 Cellulitis of left lower limb; H54.7 Unspecified visual loss; E78.00 Pure hypercholesterolemia, unspecified; I10 Essential (primary) hypertension; Z96.649 Presence of unspecified artificial hip joint; F03.90 Unspecified dementia, unspecified severity, without behavioral disturbance, psychotic disturbance, mood disturbance, and anxiety; I87.2 Venous insufficiency (chronic) (peripheral); R41.0 Disorientation, unspecified; R09.02 Hypoxemia; I48.0 Paroxysmal atrial fibrillation; Z98.49 Cataract extraction status, unspecified eye; Z88.8 Allergy status to other drugs, medicaments and biological substances; Z91.040 Latex allergy status; Z79.82 Long term (current) use of aspirin; Z79.899 Other long term (current) drug therapy
CPT/HCPCS: 36415; 71046; 71046-26; 80048; 81001; 83605; 85027; 87040; 87077; 87086; 96360; 97110-GP; 97116-GP; 97162-GP; 97530-GP; 99283; 99285-25; A9270-GY; J0690; J0696; J1650; J7030; J7040; J7050; J7120

== ENCOUNTER 2022-03-22 08:21 | Inpatient (IN) | payer MEDICARE ==
[2022-03-22] MEDS ORDERED: Sodium Chloride 0.9% 1,000 ML IV SCH (09:30)
[2022-03-22 10:09] LABS: ESTIMATED GFR 91 mL/min (>60)
[2022-03-22] MEDS ORDERED: Ondansetron 4 MG Tab.DIS PO PRN (11:35)
[2022-03-22] MEDS ORDERED: Ondansetron 4 MG/2 ML SDV IV PRN (11:35)
[2022-03-22] MEDS ORDERED: Magnesium Hydroxide 400 MG/5 ML Susp 30 ML Cup PO PRN (11:35)
[2022-03-22] MEDS: traMADol 50 MG Tab PO PRN (16:39)
[2022-03-22] MEDS: ceFAZolin 1 GM in Premix Bag 1 BAG IV SCH (17:57)
[2022-03-22] MEDS: Acetaminophen 325 MG Tab PO PRN ×2 (17:57→22:37)
[2022-03-22] MEDS: Ibuprofen 600 MG Tab PO PRN (19:54)
[2022-03-22] MEDS: Sodium Chloride 0.9% 1,000 ML IV SCH (19:56)
[2022-03-22] MEDS: Aspirin 81 MG Tab.Chew PO SCH (20:57)
[2022-03-22] MEDS: Lactobacillus Rhamnosus GG (Probiotic) Cap PO SCH (20:57)
[2022-03-22] MEDS: Dorzolamide/Timolol 2%-0.5% Ophth Soln 10 ML Bottle EYEBOTH SCH (20:58)
[2022-03-22] MEDS: Melatonin 3 MG Tab PO SCH (21:00)
[2022-03-22] MEDS: Latanoprost 0.005% Ophth Soln 2.5 ML Bottle EYERT SCH (21:00)
[2022-03-22] MEDS: Ezetimibe 10 MG Tab PO SCH (21:01)
[2022-03-23] MEDS: ceFAZolin 1 GM in Premix Bag 1 BAG IV SCH ×3 (01:55→17:00)
[2022-03-23] MEDS: Sodium Chloride 0.9% 1,000 ML IV SCH ×2 (06:34→16:59)
[2022-03-23] MEDS: Aspirin 81 MG Tab.Chew PO SCH ×2 (08:32→21:29)
[2022-03-23] MEDS: Lactobacillus Rhamnosus GG (Probiotic) Cap PO SCH ×2 (08:33→21:33)
[2022-03-23] MEDS: Dorzolamide/Timolol 2%-0.5% Ophth Soln 10 ML Bottle EYEBOTH SCH ×2 (08:33→21:31)
[2022-03-23] MEDS: traMADol 50 MG Tab PO PRN (09:54)
[2022-03-23] MEDS: oxyCODONE 5 MG Tab PO PRN (11:41)
[2022-03-23] MEDS: Acetaminophen 500 MG Tab PO SCH ×3 (12:10→21:33)
[2022-03-23] MEDS: Melatonin 3 MG Tab PO SCH (21:33)
[2022-03-23] MEDS: Ezetimibe 10 MG Tab PO SCH (21:34)
[2022-03-23] MEDS: Latanoprost 0.005% Ophth Soln 2.5 ML Bottle EYERT SCH (21:34)
[2022-03-24] MEDS: ceFAZolin 1 GM in Premix Bag 1 BAG IV SCH ×2 (02:19→10:03)
[2022-03-24] MEDS: oxyCODONE 5 MG Tab PO PRN ×5 (04:48→22:58)
[2022-03-24] MEDS: Dorzolamide/Timolol 2%-0.5% Ophth Soln 10 ML Bottle EYEBOTH SCH ×2 (08:12→20:56)
[2022-03-24] MEDS: Lactobacillus Rhamnosus GG (Probiotic) Cap PO SCH ×2 (08:12→20:57)
[2022-03-24] MEDS: Acetaminophen 500 MG Tab PO SCH ×3 (08:12→20:58)
[2022-03-24] MEDS: Aspirin 81 MG Tab.Chew PO SCH ×2 (08:12→20:55)
[2022-03-24] MEDS ORDERED: Iopamidol 612 MG/ML 100 ML Bottle IV ONE (10:30)
[2022-03-24] MEDS ORDERED: Sodium Chloride 0.9% 50 ML IV SCH (10:30)
[2022-03-24] MEDS ORDERED: Vancomycin 1 GM SDV IV SCH (11:00)
[2022-03-24] MEDS: Sodium Chloride 0.9% 1,000 ML IV SCH (17:27)
[2022-03-24] MEDS: Melatonin 3 MG Tab PO SCH (20:58)
[2022-03-24] MEDS: Latanoprost 0.005% Ophth Soln 2.5 ML Bottle EYERT SCH (20:59)
[2022-03-24] MEDS: Ezetimibe 10 MG Tab PO SCH (21:00)
[2022-03-25] MEDS: oxyCODONE 5 MG Tab PO PRN (04:55)
[2022-03-25] MEDS: Ibuprofen 600 MG Tab PO PRN ×2 (07:42→16:20)
[2022-03-25] MEDS: Aspirin 81 MG Tab.Chew PO SCH ×2 (08:03→20:08)
[2022-03-25] MEDS: Dorzolamide/Timolol 2%-0.5% Ophth Soln 10 ML Bottle EYEBOTH SCH ×2 (08:03→20:10)
[2022-03-25] MEDS: Lactobacillus Rhamnosus GG (Probiotic) Cap PO SCH ×2 (08:03→20:10)
[2022-03-25] MEDS: Acetaminophen 500 MG Tab PO SCH ×3 (08:04→20:09)
[2022-03-25] MEDS ORDERED: Sodium Chloride 0.9% 1,000 ML IV SCH (10:30)
[2022-03-25] MEDS: Latanoprost 0.005% Ophth Soln 2.5 ML Bottle EYERT SCH (20:09)
[2022-03-25] MEDS: Melatonin 3 MG Tab PO SCH (20:10)
[2022-03-25] MEDS: Ezetimibe 10 MG Tab PO SCH (20:11)
[2022-03-25] MEDS ORDERED: Atenolol 25 MG Tab PO ONE (20:30)
[2022-03-26] MEDS: oxyCODONE 5 MG Tab PO PRN (04:16)
[2022-03-26 05:17] LABS: ESTIMATED GFR 91 mL/min (>60)
[2022-03-26] MEDS: Acetaminophen 500 MG Tab PO SCH ×3 (08:13→21:03)
[2022-03-26] MEDS: Aspirin 81 MG Tab.Chew PO SCH ×2 (08:13→21:04)
[2022-03-26] MEDS: Dorzolamide/Timolol 2%-0.5% Ophth Soln 10 ML Bottle EYEBOTH SCH ×2 (08:14→21:04)
[2022-03-26] MEDS: Lactobacillus Rhamnosus GG (Probiotic) Cap PO SCH ×2 (08:14→21:04)
[2022-03-26] MEDS: Furosemide 20 MG Tab PO SCH (09:44)
[2022-03-26] MEDS: Potassium Chloride 10 MEQ Cap.ER PO SCH ×2 (09:44→21:04)
[2022-03-26] MEDS: Enalapril 5 MG Tab PO SCH ×2 (09:45→21:03)
[2022-03-26] MEDS: Atenolol 25 MG Tab PO SCH (09:50)
[2022-03-26] MEDS: Ezetimibe 10 MG Tab PO SCH (21:03)
[2022-03-26] MEDS: Melatonin 3 MG Tab PO SCH (21:03)
[2022-03-26] MEDS: Latanoprost 0.005% Ophth Soln 2.5 ML Bottle EYERT SCH (21:04)
[2022-03-27] MEDS: Ibuprofen 600 MG Tab PO PRN ×2 (06:24→21:12)
[2022-03-27] MEDS: Aspirin 81 MG Tab.Chew PO SCH ×2 (08:41→20:51)
[2022-03-27] MEDS: Atenolol 25 MG Tab PO SCH (08:42)
[2022-03-27] MEDS: Furosemide 20 MG Tab PO SCH (08:42)
[2022-03-27] MEDS: Dorzolamide/Timolol 2%-0.5% Ophth Soln 10 ML Bottle EYEBOTH SCH ×2 (08:42→20:51)
[2022-03-27] MEDS: Potassium Chloride 10 MEQ Cap.ER PO SCH ×2 (08:42→20:50)
[2022-03-27] MEDS: Lactobacillus Rhamnosus GG (Probiotic) Cap PO SCH ×2 (08:42→20:50)
[2022-03-27] MEDS: Acetaminophen 500 MG Tab PO SCH ×3 (08:43→20:50)
[2022-03-27] MEDS: Enalapril 5 MG Tab PO SCH ×3 (08:44→21:04)
[2022-03-27] MEDS: Melatonin 3 MG Tab PO SCH (20:51)
[2022-03-27] MEDS: Ezetimibe 10 MG Tab PO SCH (20:53)
[2022-03-27] MEDS: Latanoprost 0.005% Ophth Soln 2.5 ML Bottle EYERT SCH (20:53)
[2022-03-28] MEDS: Ibuprofen 600 MG Tab PO PRN (04:52)
[2022-03-28] MEDS: Enalapril 5 MG Tab PO SCH ×2 (08:10→21:09)
[2022-03-28] MEDS: Acetaminophen 500 MG Tab PO SCH ×3 (08:10→21:07)
[2022-03-28] MEDS: Furosemide 20 MG Tab PO SCH (08:11)
[2022-03-28] MEDS: Aspirin 81 MG Tab.Chew PO SCH ×2 (08:11→21:06)
[2022-03-28] MEDS: Potassium Chloride 10 MEQ Cap.ER PO SCH ×2 (08:11→21:07)
[2022-03-28] MEDS: Atenolol 25 MG Tab PO SCH (08:11)
[2022-03-28] MEDS: Lactobacillus Rhamnosus GG (Probiotic) Cap PO SCH ×2 (08:11→21:06)
[2022-03-28] MEDS: Dorzolamide/Timolol 2%-0.5% Ophth Soln 10 ML Bottle EYEBOTH SCH ×2 (08:12→21:06)
[2022-03-28] MEDS: hydrALAZINE 10 MG Tab PO SCH (17:44)
[2022-03-28] MEDS: Clindamycin HCl 150 MG Cap PO SCH (17:47)
[2022-03-28] MEDS: Latanoprost 0.005% Ophth Soln 2.5 ML Bottle EYERT SCH (21:07)
[2022-03-28] MEDS: Melatonin 3 MG Tab PO SCH (21:07)
[2022-03-28] MEDS: Cefdinir 300 MG Cap PO SCH (21:07)
[2022-03-28] MEDS: Ezetimibe 10 MG Tab PO SCH (21:08)
[2022-03-29] MEDS: hydrALAZINE 10 MG Tab PO SCH ×3 (01:12→12:27)
[2022-03-29] MEDS: Clindamycin HCl 150 MG Cap PO SCH ×2 (01:13→09:21)
[2022-03-29] MEDS: Ibuprofen 600 MG Tab PO PRN (07:51)
[2022-03-29] MEDS: Lactobacillus Rhamnosus GG (Probiotic) Cap PO SCH (08:16)
[2022-03-29] MEDS: Potassium Chloride 10 MEQ Cap.ER PO SCH (08:16)
[2022-03-29] MEDS: Dorzolamide/Timolol 2%-0.5% Ophth Soln 10 ML Bottle EYEBOTH SCH (08:16)
[2022-03-29] MEDS: Furosemide 20 MG Tab PO SCH (08:16)
[2022-03-29] MEDS: Aspirin 81 MG Tab.Chew PO SCH (08:17)
[2022-03-29] MEDS: Atenolol 25 MG Tab PO SCH (08:17)
[2022-03-29] MEDS: Acetaminophen 500 MG Tab PO SCH (08:18)
[2022-03-29] MEDS: Enalapril 5 MG Tab PO SCH (08:18)
[2022-03-29] MEDS: Cefdinir 300 MG Cap PO SCH (09:21)
[2022-03-29 10:58] VITALS: BP 155/64; PULSE 57
== END 2022-03-29 14:00 | DRG 603 ==
LOC: JP.ED 08:21 → JP.MS 10:35
PROVIDERS: ADMIT Internal Medicine; ATTEND Hospitalist
DX: L03.319 Cellulitis of trunk, unspecified (principal); L03.317 Cellulitis of buttock; L02.219 Cutaneous abscess of trunk, unspecified; J30.9 Allergic rhinitis, unspecified; L98.422 Non-pressure chronic ulcer of back with fat layer exposed; I10 Essential (primary) hypertension; E78.00 Pure hypercholesterolemia, unspecified; H54.7 Unspecified visual loss; Z96.649 Presence of unspecified artificial hip joint; Z79.82 Long term (current) use of aspirin; Z86.12 Personal history of poliomyelitis; Z91.040 Latex allergy status; Z88.0 Allergy status to penicillin; Z79.899 Other long term (current) drug therapy; Z88.8 Allergy status to other drugs, medicaments and biological substances; Z98.49 Cataract extraction status, unspecified eye
CPT/HCPCS: 36415; 74177; 75989; 75989-26; 80048; 80053; 80076; 80202; 84145; 85025; 85027; 86140; 96374; 97110-GP; 97162-GP; 97530-GP; 99223; 99232; 99233; 99238; 99284; 99285-25; A9270-GY; J0690; J0694; J0713; J3370; J3490; J7030; J7050; Q9967